=== PATIENT | male | born 1975 | race Caucasian/White ===

== ENCOUNTER → 2022-05-25 | Outpatient (CLI) | payer BC, SELFPAY ==
--- NOTE | 2022-05-25 14:34 | NEURO ---
NCS and/or EMG Patient Report Ordering Doctor: Denys Myers DATE OF SERVICE: 05/25/22 Ervin presents for electrodiagnostic testing of the upper limbs. He reports numbness and pain in both hands, worse over the past 6 months. Electrodiagnostic findings: Median motor nerve demonstrates normal distal latency, amplitude and conduction velocity bilaterally. Normal ulnar motor response bilaterally, including conduction across the elbow. Normal median and ulnar F waves. Sensory responses are within normal limits. On needle EMG, all muscles tested in the upper limbs showed no evidence of denervation with normal motor unit action potentials. Electrodiagnostic Impression: This is a normal electrodiagnostic study of the upper limbs. There is no electrodiagnostic evidence for peripheral neuropathy, including carpal tunnel or cubital tunnel syndrome. No electrodiagnostic evidence is noted for cervical radiculopathy.
== END | disposition home or self-care (01) ==
LOC: PSN 12:55
PROVIDERS: PCP Family Medicine; Visit Provider Orthopaedic Surgery
DX: R22.31 Localized swelling, mass and lump, right upper limb (principal); G56.01 Carpal tunnel syndrome, right upper limb
CPT/HCPCS: 95886; 95913

== ENCOUNTER 2024-01-02 11:15 | Emergency (ER) | payer BC, SELFPAY ==
[2024-01-02 11:16] VITALS: BP 137/93; PULSE 71; RESP 14; TEMP 35.6; O2SAT 98; BMI 26.9
[2024-01-02] MEDS: Fluorescein 1 MG STRIP 1 STRIP LEFT EYE (11:41)
[2024-01-02] MEDS: Tetracaine 0.5% Ophthalmic Bottle 3 DRP LEFT EYE (11:42)
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
[2024-01-02] MEDS: Neomycin/Bacitracin/Polymyxin Opth. Ointment 1 APPLIC LEFT EYE (13:16)
== END 2024-01-02 13:18 | disposition home or self-care (01) ==
PROVIDERS: Emergency Provider Emergency Medicine; PCP Family Medicine; Visit Provider Emergency Medicine
DX: T15.02XA Foreign body in cornea, left eye, initial encounter (principal); Z87.891 Personal history of nicotine dependence; Z97.3 Presence of spectacles and contact lenses; X58.XXXA Exposure to other specified factors, initial encounter
CPT/HCPCS: 99284; J7030

== ENCOUNTER → 2024-11-29 | Outpatient (CLI) | payer BC, SELFPAY ==
--- OUTSIDE RECORDS SUMMARY | 2024-11-29 07:45 | XMS RPT_ITS | CCD ---
Author Organization [facility] Inform ion Partnership [facility] Care Team Providers Care Core Winder Name Role Phone PHYSICIAN, NONE Primary Care Physician Unavailab Citlalli Daley MD Primary Care Provider Citlalli Chaney MD Primary Care Provider DENYS DAVISON Admitting Unavailable DENYS DAVISON Attending Unavailable CITLALLI CHANEY Primary Care Unavailable Citlalli Chaney MD Primary Care Provider CATHY CASTRO MD Attending Unavailable PHYSICIAN, NONE Primary Care Unavailable CATHY CASTRO MD Attending Unavailable PHYSICIAN, NONE Primary Care Unavailable Citlalli Chaney Primary Care Unavailable Denys Davis Attending Unavailable Brian SUPPLY AIDE.Glory EARLY Unavailable Zaid SUPPLY AIDEDiaz WAHL Unavailable CITLALLI CHANEY Primary Care Unavailable CITLALLI CHANEY Referring Unavailable CHEYANNE KLEIN Attending Unavailable CITLALLI CHANEY Primary Care Unavailable CITLALLI CHANEY Attending Unavailable CITLALLI CHANEY Primary Care Unavailable CITLALLI CHNAEY Primary Care Unavailable GLORY TORRES Attending Unavailable CHEYANNE KLEIN Attending Unavailable CITLALLI CHANEY Primary Care Unavailable CITLALLI CHANEY Primary Care Unavailable SELF Referring Unavailable CHEYANNE KLEIN Attending Unavailable Medications Current Medications Medication Drug Class(es) Dates Sig (Normalized) Sig (Original) acetaminophen 325 mg / HYDROcodone bitartrate 5 mg oral tablet (2 sources) Opioid Agonist Start: 01-04-2024 End: 01-07-2024 take 1 tablet by mouth every six hours as needed for pain Mcfarland 325- 5 mg oral tablet Dose = 1 tab(s), Oral, q6h, PRN As needed for severe pain, X 3 day(s), # 12 tab(s), 0 Refill(s), Herpes zoster, 81.8 Start Date: 01/04/24 Stop Date: 01/07/24 Status: Ordered acetaminophen 325 mg / oxyCODONE hydrochloride 5 mg oral tablet (1 source) Opioid Agonist Start: 03-22-2013 take 1 tablet by mouth every four hours as needed Oxycodone-Acetami nophen Active 1 - 2 TABLET PO EVERY 4 HOURS NEEDED March 22, 2013 12:00am amoxicillin 875 mg / clavulanate 125 mg oral tablet (2 sources) Penicillin-class Antibacterial Start: 08-17-2022 End: 08-27-2022 take 1 tablet by mouth twice daily amoxicillin-clavu lanic acid (AUGMENTIN) 875-125 mg per tablet Indications: Non-recurrent acute suppurative otitis media of right ear without spontaneous rupture of tympanic membrane Take 1 tablet by mouth twice daily for 10 days. 20 tablet 0 08/17/2022 08/27/2022 Active Start: 03-11-2022 End: 03-21-2022 take 1 tablet by mouth twice daily amoxicillin-clavulanic acid (AUGMENTIN) 875-125 mg per tablet Indications: Acute otitis media, unspecified otitis media type Take 1 tablet by mouth twice daily for 10 days. 20 tablet 0 03/11/2022 03/21/2022 Active Comment on above: Take 1 tablet by [facility] twice daily for 10 days. benoxinate hydrochloride 4 mg/ml / fluorescein sodium 3 mg/ml ophthalmic solution (4 sources) Diagnostic Dye Start: 03-07-2024 End: 03-07-2024 fluorescein-benoxi maricarmen 0.3-0.4 % 1 Drop (FLURESS) Start: 03-07-2024 End: 03-07-2024 1 Drop, BOTH EYES, DIRECT ED, Starting on Gissell 03/07/24 at 0830, Until Gissell 03/07/24 at 2028, Administer for applanation tonometry. In the event of a Fluress shortage, administer Renetta-Fluor 1 drop into both eyes as directed for applanation tonometry, OPHT CLINIC MED ORDERS Start: 01-12-2024 End: 01-12-2024 fluorescein-benoxinate 0.3-0 .4 % 1 Drop (FLURESS) Start: 01-12-2024 End: 01-12-2024 1 Drop, BOTH EYES, DIRECT ED, Starting on Mon01/12/24 at 0900, Until Mon01/12/24 at 2058, Administer for applanation tonometry. In the event of a Fluress shortage, administer Renetta-Fluor 1 drop into both eyes as directed for applanation tonometry, OPHT CLINIC MED ORDERS 24 hr buPROPion hydrochloride 150 mg extended release oral tablet (20 sources) Aminoketone Start: 04-26-2024 take 1 tablet by mouth once daily buPROPion XL (WELLBUTRIN XL) 150 mg 24 hr tablet Indications: Adjustment disorder with anxious mood Take 1 tablet by mouth once daily. 30 tablet 11 04/26/2024 Active Start: 01-03-2024 Wellbutrin SR Oral, BID, 0 Refill(s) Start Date: 01/03/24 Status: Ordered Start: 06-22-2021 End: 04-26-2024 take 1 tablet by mouth once daily buPROPion XL (WELLBUTRIN XL) 150 mg 24 hr tablet Indications: Adjustment disorder with anxious mood Take 1 tablet by mouth once daily. 30 tablet 11 06/12/2023 04/26/2024 Discontinued Comment on above: Take 1 tablet by [facility] once daily. celecoxib 200 mg oral capsule (20 sources) Nonsteroidal Anti-inflammatory Drug Start: 01-03-2024 CeleBREX Oral, 0 Refill(s) Start Date: 01/03/24 Status: Ordered Start: 07-18-2014 End: 04-26-2025 take 1 capsule by mouth once daily celecoxib (CELEBREX) 200 mg capsule Indications: Chronic pain of right knee Take 1 capsule by mouth once daily. 30 capsule 11 04/26/2024 04/26/2025 Active Comment on above: Take [address] [facility] once daily. gabapentin 600 mg oral tablet (15 sources) Anti-epileptic Agent Start: 04-26-2024 End: 10-23-2024 take 1 tablet by mouth three times daily gabapentin (NEURONTIN) 600 mg tablet Indications: Herpes zoster with complication Take 1 tablet by mouth three times a day for 180 days. 90 tablet 5 04/26/2024 10/23/2024 Active Start: 01-19-2024 End: 05-25-2024 take 1 capsule by mouth three times daily gabapentin (NEURONTIN) 400 mg capsule Indications: Herpes zoster with complication Take 1 capsule by mouth three times a day for 30 days. 90 capsule 04/25/2024 04/26/2024 Discontinued Start: 01-09-2024 End: 01-23-2024 take 1 capsule by mouth three times daily gabapentin (NEURONTIN) 300 mg capsule Take 1 capsule by mouth three times a day for 14 days. 42 capsule 01/09/2024 01/19/2024 Discontinued naproxen 250 mg oral tablet (1 source) Nonsteroidal Anti-inflammatory Drug Start: 05-13-2021 End: 2021 naproxen 250 mg oral tablet Dose : 250 mg = 1 tab(s), Oral, BID, X 7 day(s), # 14 tab(s), 0 Refill(s), 05/20/21 0:47:00 EST, Fall from ladder Contusion of rib Start Date: 05/13/21 Stop Date: 05/20/21 Status: Ordered ondansetron 4 mg oral tablet (1 source) Serotonin-3 Receptor Antagonist Start: 01-05-2024 End: 01-08-2024 take 1 tablet by mouth every six hours as needed for nausea Zofran ODT use ondansetron oral tablet, disintegrating Dose : 4 mg =, Oral, q6h, PRN as needed for nausea/vomiting, # 12 tab(s), 0 Refill(s) Start Date: 01/05/24 Stop Date: 01/08/24 Status: Ordered phenylephrine hydrochloride 25 mg/ml ophthalmic solution (4 sources) alpha-1 Adrenergic Agonist Start: 01-19-2024 End: 01-19-2024 PHENYLephrine 2.5 % 1 Drop (AK-DILATE, JUDY-SYNEPHRINE) Start: 01-19-2024 End: 01-19-2024 1 Drop, BOTH EYES, DIRECT ED, Starting on Mon01/19/24 at 0900, Until Mon01/19/24 at 2059, Administer for dilation PROTECT FROM LIGHT Start: 01-12-2024 End: 01-12-2024 PHENYLephrine 2.5 % 1 Drop ( AK-DILATE, JUDY-SYNEPHRINE) Start: 01-12-2024 End: 01-12-2024 1 Drop, BOTH EYES, DIRECT ED, Starting on Mon01/12/24 at 0900, Until Mon01/12/24 at 2058, Administer for dilation PROTECT FROM LIGHT, OPHT CLINIC MED ORDERS proparacaine hydrochloride 5 mg/ml ophthalmic solution (4 sources) Local Anesthetic Start: 03-07-2024 End: 03-07-2024 proparacaine 0.5 % 1 Drop (ALCAINE) Start: 03-07-2024 End: 03-07-2024 1 Drop, BOTH EYES, DIRECT ED, Starting on Gissell 03/07/24 at 0830, Until Gissell 03/07/24 at 2028, Administer for pneumo tonometry, tonopen tonometry, or pachymetry. In the event of a proparacaine shortage, administer tetracaine 0.5% ophthalmic drops 1 drop in both eyes as directed for pneumo tonometry, tonopen tonometry, or pachymetry, OPHT CLINIC MED ORDERS Start: 01-12-2024 End: 01-12-2024 proparacaine 0.5 % 1 Drop (A LCAINE) Start: 01-12-2024 End: 01-12-2024 1 Drop, BOTH EYES, DIRECT ED, Starting on Mon01/12/24 at 0900, Until Mon01/12/24 at 2058, Administer for pneumo tonometry, tonopen tonometry, or pachymetry. In the event of a proparacaine shortage, administer tetracaine 0.5% ophthalmic drops 1 drop in both eyes as directed for pneumo tonometry, tonopen tonometry, or pachymetry, OPHT CLINIC MED ORDERS rosuvastatin calcium 10 mg oral tablet (20 sources) HMG-CoA Reductase Inhibitor Start: 04-26-2024 take 1 tablet by mouth once daily at bedtime rosuvastatin (CRESTOR) 10 mg tablet Indications: Hyperlipidemia, unspecified hyperlipidemia type Take 1 tablet by mouth daily at bedtime. 30 tablet 11 04/26/2024 Active Start: 01-03-2024 Crestor Oral, qDay, 0 Refill(s) Start Date: 01/03/24 Status: Ordered Start: 06-22-2021 End: 04-26-2024 take 1 tablet by mouth once daily at bedtime rosuvastatin (CRESTOR) 10 mg tablet Indications: Hyperlipidemia, unspecified hyperlipidemia type Take 1 tablet by mouth daily at bedtime. 30 tablet 11 06/12/2023 04/26/2024 Discontinued Comment on above: Take 1 tablet by fredy daily at bedtime. sertraline 100 mg oral tablet (20 sources) Serotonin Reuptake Inhibitor Start: 04-26-2024 take 2 tablets by mouth once daily sertraline (ZOLOFT) 100 mg tablet Indications: Adjustment disorder with anxious mood Take 2 tablets by mouth once daily. 60 tablet 11 04/26/2024 Active Start: 01-03-2024 Zoloft Oral, q Day, 0 Refill(s) Start Date: 01/03/24 Status: Ordered Start: 06-22-2021 End: 04-26-2024 take 2 tablets by mouth once daily sertraline (ZOLOFT) 100 mg tablet Indications: Adjustment disorder with anxious mood Take 2 tablets by mouth once daily. 60 tablet 11 06/12/2023 04/26/2024 Discontinued Start: 07-18-2014 take 100 mg by mouth once chrissy y Sertraline Active 100 MG PO DAILY July 17, 2014 11:00pm Comment on above: Take [address] [facility] once daily. traMADol hydrochloride 50 mg oral tablet (1 source) Opioid Agonist Start: 07-19-19 take 100 mg by mouth every four hours Tramadol Active 100 MG PO Q4H July 17, 2014 11:00pm tropicamide 10 mg/ml ophthalmic solution (4 sources) Anticholinergic Start: 01-19-20 End: 01-19-20 tropicamide 1 % 1 Drop (MYDRIACYL) Start: 01-19-2024 End: 01-19-2024 1 Drop, BOTH EYES, DIRECT ED, Starting on Mon01/19/24 at 0900, Until Mon01/19/24 at 2058, Administer for dilation Start: 01-12-2024 End: 01-12-2024 tropicamide 1 % 1 Drop (MYDR IACYL) Start: 01-12-2024 End: 01-12-2024 1 Drop, BOTH EYES, DIRECT ED, Starting on Mon01/12/24 at 0900, Until Mon01/12/24 at 2058, Administer for dilation, OPHT CLINIC MED ORDERS Tylenol with Codeine #3 use acetaminophen-codeine 300 mg-30 mg tablet (1 source) Start: 05-13-2021 End: 05-16-2021 take 1 tablet by mouth every six hours Tylenol with Codeine #3 use acetaminophen-codeine 300 mg-30 mg tablet Dose = 1 tab(s), Oral, q6hr, X 3 day(s), # 12 tab(s), 0 Refill(s), Fall from ladder Contusion of rib Start Date: 05/13/21 Stop Date: 05/16/21 Status: Ordered valACYclovir 1000 mg oral tablet (8 sources) Herpesvirus Nucleoside Analog DNA Polymerase Inhibitor, Herpes Simplex Virus Nucleoside Analog DNA Polymerase Inhibitor, Herpes Zoster Virus Nucleoside Analog DNA Polymerase Inhibitor Start: 02-07-2024 End: 02-21-2024 take 1 tablet by mouth twice daily valACYclovir (VALTREX) 1 gram tablet Take 1 tablet by mouth two times a day for 14 days. 28 tablet 02/07/2024 02/21/2024 Active Start: 01-12-2024 End: 02-07-2024 take 1 tablet by mouth three times daily valACYclovir (VALTREX) 1 gram tablet Take 1 tablet by mouth three times a day. 21 tablet 2 02/07/2024 02/07/2024 Discontinued Start: 01-04-2024 End: 01-11-2024 valACYclovir 1 g oral tablet Dose : 1 gram(s) = 1 tab(s), Oral, q8h, X 7 day(s), # 21 tab(s), 0 Refill(s), 01/11/24 12:06:00 AM EDT, 81.8 Start Date: 01/04/24 Stop Date: 01/11/24 Status: Ordered Completed/Discontinued Medications Medication Drug Class(es) Dates Sig (Normalized) Sig (Original) betamethasone 3 mg/ml / betamethasone acetate 3 mg/ml injectable suspension (1 source) Corticosteroid Start: 04-04-2022 End: 04-04-2022 betamethasone acetate-betamethason e sodium phosphate 3 mg injection (CELESTONE) Start: 04-04-2022 End: 04-04-2022 betamethasone acetate-betame thasone sodium phosphate 3 mg injection (CELESTONE) cyclobenzaprine hydrochloride 10 mg oral tablet (1 source) Muscle Relaxant Start: 05-19-2021 End: 03-11-2022 take 1 tablet by mouth three times daily as needed for muscle spasms cyclobenzaprine (FLEXERIL) 10 mg tablet Indications: Contusion of rib on left side, subsequent encounter Take 1 tablet by mouth three times daily as needed for muscle spasm. 30 tablet 1 05/19/2021 03/11/2022 Discontinued (Course of therapy completed) Comment on above: Take 1 tablet by fredy three times daily as needed for muscle spasm. erythromycin 0.005 mg/mg ophthalmic ointment (5 sources) Macrolide, Macrolide Antimicrobial Start: 01-12-2024 End: 03-07-2024 erythromycin (ROMYCIN) 5 mg/gram (0.5 %) ophthalmic ointment Use 1 application in the left eye daily at bedtime. 3.5 g 2 01/12/2024 03/07/2024 Discontinued (Discontinued by another Health Care Provider) 10 ml lidocaine hydrochloride 10 mg/ml injection (1 source) Antiarrhythmic, Amide Local Anesthetic Start: 04-04-2022 End: 04-04-2022 lidocaine (PF) 10 mg/mL (1 %) 0.5 mL injection (XYLOCAINE) Start: 04-04-2022 End: 04-04-2022 lidocaine (PF) 10 mg/mL (1 % ) 0.5 mL injection (XYLOCAINE) prednisoLONE acetate 10 mg/ml ophthalmic suspension (6 sources) Corticosteroid Start: 02-07-2024 End: 03-07-2024 prednisoLONE acetate (PRED FORTE) 1 % ophthalmic suspension Use 1 Drop in the left eye two times a day. Follow taper dose as instructed. 10 mL 1 02/07/2024 03/07/2024 Discontinued (Discontinued by another Health Care Provider) Start: 01-12-2024 End: 02-07-2024 prednisoLONE acetate (PRED F ORTE) 1 % ophthalmic suspension Use 1 Drop in the left eye four times daily. 10 mL 1 01/12/2024 02/07/2024 Discontinued Problems Active Problems Problem Classification Problem Date Documented Date Episodic/Chronic Adjustment disorders (20 sources) Adjustment disorder with anxious mood; Translations: [Adjustment disorder with anxiety] Onset: 03-02-2009 03-02-2009 Chronic Diseases of white blood cells (1 source) White blood cell disorder; Translations: [Other specified disorders of white blood cells] Onset: 05-13-2021 Chronic Disorders of lipid metabolism (20 sources) Hyperlipidemia; Translations: [Hyperlipidemia, unspecified] Onset: 01-09-2014 02-19-2015 Chronic E Codes: Fall (1 source) Fall from ladder; Translations: [Fall on and from ladder, initial encounter] Onset: 05-13-2021 Episodic Joint disorders and dislocations; trauma-related (20 sources) Derangement of meniscus; Translations: [Other meniscus derangements, unspecified lateral meniscus, unspecified knee] Onset: 01-09-2008 05-03-2021 Chronic Other and unspecified benign neoplasm (3 sources) Lipoma of right upper limb; Translations: [Benign lipomatous neoplasm of skin and subcutaneous tissue of right arm] Episodic Other and unspecified benign neoplasm (1 source) Benign lipomatous neoplasm of skin and subcutaneous tissue of right arm; Translations: [Lipoma of right upper extremity] Onset: 11-04-2022 Episodic Other eye disorders (1 source) Pain of left eye; Translations: [Ocular pain, left eye] 01-02-2024 Episodic Other eye disorders (1 source) Unspecified disorder of eye and adnexa; Translations: [Unspecified disorder of eye and adnexa] Onset: 01-25-2024 Episodic Other nervous system disorders (5 sources) Carpal tunnel syndrome of right wrist; Translations: [Carpal tunnel syndrome, right upper limb] Chronic Other nervous system disorders (1 source) Carpal tunnel syndrome, right upper limb; Translations: [Carpal tunnel syndrome on right] Onset: 11-04-2022 Chronic Other nervous system disorders (1 source) Other chronic pain; Translations: [Chronic pain of right knee] Onset: 07-27-2012 Chronic Other nervous system disorders (1 source) Impairment of balance; Translations: [Other abnormalities of gait and mobility] Episodic Other non-traumatic joint disorders (20 sources) Pain in unspecified knee; Translations: [Pain in joint, lower leg] Onset: 07-27-2012 07-27-2012 Episodic Other non-traumatic joint disorders (1 source) Mass of joint of right wrist; Translations: [Other specified joint disorders, right wrist] Episodic Other non-traumatic joint disorders (2 sources) Effusion of joint of right wrist; Translations: [Effusion, right wrist] Episodic Other non-traumatic joint disorders (1 source) Effusion, right wrist; Translations: [Effusion of joint of right wrist] Onset: 11-04-2022 Episodic Other skin disorders (3 sources) Mass of wrist; Translations: [Localized swelling, mass and lump, right upper limb] Episodic Otitis media and related conditions (2 sources) Acute otitis media; Translations: [Otitis media, unspecified, unspecified ear] Episodic Screening and history of mental health and substance abuse codes (4 sources) Patient encounter status; Translations: [Encounter for screening for depression] Onset: 04-26-2024 04-26-2024 Episodic Substance-related disorders (20 sources) Cannabis abuse; Translations: [Cannabis abuse, uncomplicated] Onset: 01-31-2018 01-31-2018 Chronic Superficial injury; contusion (1 source) Contusion of chest; Translations: [Contusion of thorax, unspecified, initial encounter] Onset: 05-13-2021 Episodic Past or Other Problems Problem Classification Problem Date Documented Da te Episodic/Chronic Joint disorders and dislocations; trauma-related (20 sources) Tear of meniscus of knee; Translations: [Unspecified tear of unspecified meniscus, current injury, right knee, initial encounter] Onset: 06-13-2011 06-13-2011 Episodic Other acquired deformities (20 sources) Acquired genu varum; Translations: [Varus deformity, not elsewhere classified, unspecified knee] Onset: 03-29-2013 03-29-2013 Episodic Other nervous system disorders (20 sources) Paresthesia of upper limb; Translations: [Anesthesia of skin] Onset: 09-01-2011 09-01-2011 Episodic Other non-traumatic joint disorders (9 sources) Shoulder pain; Translations: [Pain in right shoulder] Onset: 09-01-2011 09-01-2011 Episodic Other non-traumatic joint disorders (16 sources) Pain in right shoulder; Translations: [Pain in joint, shoulder region] Onset: 09-01-2011 09-01-2011 Episodic Other non-traumatic joint disorders (1 source) Pain in right knee; Translations: [Chronic pain of right knee] Onset: 07-27-2012 Episodic Residual codes; unclassified (20 sources) Family history of cancer of colon; Translations: [Family history of malignant neoplasm of digestive organs] Onset: 06-03-2009 06-03-2009 Episodic Spondylosis; intervertebral disc disorders; other back problems (20 sources) Lumbago with sciatica; Translations: [Lumbago with sciatica, unspecified side] Onset: 04-21-2015 04-21-2015 Episodic Viral infection (10 sources) Herpes zoster without complication; Translations: [Zoster without complications] Onset: 01-04-2024 Episodic Results Test Name Value Interpretation Reference Range Facil ity CNOVon 04-26-2024 CNOV Office Visit ([facility] ) NEVILLE FOX ([id number]) 1975 M Date Time Provider Department 04/26/24 7:40 AM GLORY TORRES [facility] During your visit today, we recorded the following information about you: Pulse Respiration Blood pressure Weight 63/minute 16/minute 120/82 93.6 kg Glory Torres APRN.MEDICAID ANALYST 04/26/2024 8:21 AM Signed This is a 48 year old male who presents today with: Patient presents with: Physical HISTORY OF PRESENT ILLNESS: Neville Fox is a 48 year old male. Patient presents with: Physical Diet: Eating a well balanced diet. Exercise: Staying active. Vision: Had exam, wearing glasses.Dental: Had exam. Sleep: 6-8 hours per night. Mood:See below Shingles: Diagnosed with shingles by ER, evaluated by cut in station operator 03/07/2024. Taking gabapentin 400 mg 3 times daily. Refers that rash has heal but still having ongoing pain. Gabapentin has been mildly helpful. No difficulty with vision. Upset how situation was handled within [facility]. Would like to look at establishing care with another provider at a different hospital system in the future. Anxiety: Taking Wellbutrin XL 150 mg and Zoloft 100 mg, 2 tablets daily. Symptoms well-controlled. Denies SI/HI. Chronic Knee Pain: Taking Celebrex 200 mg daily. Was following with Dr. Davison in Orthopedics. Discussion of knee replacement in the future. Lipids: Taking Crestor 10 mg daily. Colonoscopy: Last completed 2021, due in 10 years. Vaccines: Denied wanting any vaccines at this time. PAST MEDICAL HISTORY: PAST MEDICAL HISTORY Diagnosis Date Arthritis Herpes zoster left Eye Internal derangement of knee Shingles Unspecified otitis media Recurrent otitis PAST SURGICAL HISTORY Procedure Laterality Date ARTHROSCOPY KNEE DIAGNOSTIC W/WO SYNOVIAL BX SPX between high school and summer 2008 most recent Arthroscopy, knee, x5 right knee, COLONOSCOPY 07/14/2021 repeat in 10 years ALLERGIES Patient has no known allergies. MEDICATIONS Current Outpatient Medications Medication Sig gabapentin (NEURONTIN) 400 mg capsule Take 1 capsule by mouth three times a day for 30 days. buPROPion XL (WELLBUTRIN XL) 150 mg 24 hr tablet Take 1 tablet by mouth once daily. celecoxib (CELEBREX) 200 mg capsule Take 1 capsule by mouth once daily. rosuvastatin (CRESTOR) 10 mg tablet Take 1 tablet by mouth daily at bedtime. sertraline (ZOLOFT) 100 mg tablet Take 2 tablets by mouth once daily. No current facility-administered medications for this visit. FAMILY HISTORY Problem Relation Age of Onset No Ocular Disease Father No Ocular Disease Mother Colon Cancer Mother age 61 Hyperlipidemia Mother Heart Sister Hypertension Paternal Grandmother Diabetes Paternal Grandmother Social History Tobacco Use Smoking status: Every Day Current packs/day: 0.50 Average packs/day: 0.5 packs/day for 15.0 years (7.5 ttl pk-yrs) Types: Cigarettes Smokeless tobacco: Never Tobacco comments: Currently not smoking - 7 days no smoking 01/09/24 Vaping Use Vaping status: Never Used Substance Use Topics Alcohol use: Yes Comment: very seldom Drug use: Yes Frequency: 7.0 times per week Types: Marijuana Comment: + marijuana tox. Daily REVIEW OF SYSTEMS GENERAL: No weight loss, malaise or fevers/chills HEENT: Negative for frequent or significant headaches, No changes in hearing or vision. NECK: Negative for lumps, goiter, pain and significant neck swelling RESPIRATORY: Negative for cough, hemoptysis, wheezing, dyspnea or shortness of breath CARDIOVASCULAR: Negative for chest pain, leg swelling, orthopnea, or palpitations GI: No nausea, vomiting, or diarrhea/constipation. No hematochezia/melena. No heartburn or reflux symptoms. : No history of dysuria, frequency or incontinence MUSCULOSKELETAL: Negative for joint pain or swelling. SKIN: Negative for lesions, rash, and itching ENDOCRINE: Negative for cold or heat intolerance, polyuria, polydipsia and goiter NEURO: No history of headaches, syncope, paralysis, seizures or tremors MOOD: Negative for depression, anxiety, or suicidal ideation. EXAM: BP 120/82 Pulse 63 Resp 16 Wt 93.6 kg (206 lb 5.6 oz) SpO2 97% BMI 29.61 kg/m? PHYSICAL EXAM: General Appearance: Well appearing, alert, in no acute distress, well-hydrated, well nourished. Skin: Skin color, texture, turgor normal, no suspicious rashes or lesions. Head: Normocephalic, no masses, lesions, tenderness or abnormalities. Eyes: Anicteric sclera. Pupils are equally round and reactive to light. Extraocular movements are intact. Ears: External ears normal, canals clear. TMs pearly avila. Lungs: Lungs clear to auscultation. No wheezing, rhonchi, rales. Heart: RRR without murmur, gallop, or rubs. No ectopy. Abdomen: Normal abdominal exam, Abdomen soft, non-tender. Bowel sounds normal. No masses, organomegaly. Ext (more content not included)... Normal [facility] CNOVon 01-09-2024 CNOV Office Visit ([facility] ) NEVILLE FOX ([id number]) 1975 M Date Time Provider Department 01/09/24 4:40 PM CITLALLI CHANEY [facility] During your visit today, we recorded the following information about you: Pulse Respiration Blood pressure Weight 76/minute 16/minute 132/84 80.4 kg Citlalli Chaney MD 01/09/2024 5:01 PM Signed Chief Complaint Patient presents with: Hospital Follow Up HPI Neville Fox is a 48 year old male who presents here today for an ED follow up. Pt here today for an [place] [facility] follow up and [facility] ED f/u. Pt reports symptoms started 1 week ago when he thought something was in his eye. Tried coming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 [D17.21] Carpal tunnel syndrome on right [G56.01] Effusion of joint of right wrist [M25.431] Performed By: #### S #### [facility] CLIA [id number] [address] [place] [address] OF [place] FINAL DIAGNOSIS Normal [facility] Comment on above: Order Comment: Speci men Type: TISSUE SPECIMEN Ordering Facility: [facility] Address: [address] [place] [address] Result Comment: A. S oft tissue mass, right wrist, excision: - Spindle cell lipoma. Performed By: #### S #### [facility] CLIA [id number] [address] [place] [address] OF [facility] FINAL PERFORMING LAB Normal [facility] Comment on above: Order Comment: Speci men Type: TISSUE SPECIMEN Ordering Facility: [facility] Address: [address] [place] [address] Result Comment: Diag nostic interpretation performed at [facility], [address] [place] [address] CLIA# [id number] Mail Weigher: Benjamín Siddiqui M.D. Performed By: #### S #### [facility] CLIA [id number] [address] [place] [address] OF [place] GROSS DESCRIPTION A. LIPOMA Normal [facility] Comment on above: Order Comment: Speci men Type: TISSUE SPECIMEN Ordering Facility: [facility] Address: [address] [facility], [place] [address] Result Comment: Rece ived in formalin labeled "right wrist lipoma" is an unoriented roughly ovoid shaped piece of trent-yellow lobulated adipose tissue that measures 2.0 x 1.9 x 0.6 cm. The specimen is sectioned to reveal trent-yellow lobulated and homogenous cut surfaces with no areas of hemorrhage, necrosis, induration, or nodularity. The specimen is entirely submitted in formalin in cassette A1. JGW November 04, 2022 3:15 PM Gross examination performed at [facility], [address] [place] [address] Performed By: #### S #### [facility] CLIA [id number] [address] [place] [address] [place] [address] [place] No Panel Informationon 07-12 [facility] Additional Injections: R car pal tunnel [facility] Vital Signs Date Time Vital Sign Value Performing Clinician Facility 04-26-2024 07:43-0500 Body mass index (BMI) [Ratio] 29.61 kg/m2 Glory Torres APRN.CNP Work Phone: [facility] 04-26-2024 07:43-0500 Body weight 93.6 kg Glory Torres APRN.MEDICAID ANALYST Work Phone: [facility] 04-26-2024 07:43-0500 Diastolic blood pressure 82 mm[Hg] Glory Torres APRN.MEDICAID ANALYST Work Phone: [facility] 04-26-2024 07:43-0500 Heart rate 63 /min Glory Torres APRN.MEDICAID ANALYST Work Phone: [facility] 04-26-2024 07:43-0500 Respiratory rate 16 /min Glory Torres APRN.MEDICAID ANALYST Work Phone: [facility] 04-26-2024 07:43-0500 SaO2% (BldA) [Mass fraction] 97 % Glory Torres APRN.MEDICAID ANALYST Work Phone: [facility] 04-26-2024 07:43-0500 Systolic blood pressure 120 mm[Hg] Glory Torres APRN.CNP Work Phone: [facility] 01-09-2024 16:36-0400 Body mass index (BMI) [Ratio] 25.43 kg/m2 iCtlalli Chaney MD Work Phone: [facility] 01-09-2024 16:36-0400 Body weight 80.4 kg Citlalli Chaney MD Work Phone: [facility] 01-09-2024 16:36-0400 Diastolic blood pressure 84 mm[Hg] Citlalli Chaney MD Work Phone: [facility] 01-09-2024 16:36-0400 Heart rate 76 /min Citlalli Chaney MD Work Phone: [facility] 01-09-2024 16:36-0400 Respiratory rate 16 /min Citlalli Chaney MD Work Phone: [facility] 01-09-2024 16:36-0400 Systolic blood pressure 132 mm[Hg] Citlalli Chaney MD Work Phone: [facility] 01-05-2024 13:51-0400 Blood Pressure Location CATHY CASTRO MD [facility] 01-05-2024 13:51-0400 Blood Pressure Method CATHY CASTRO MD [facility] 01-05-2024 13:51-0400 Body temperature 97.7 [degF] CATHY CASTRO MD [facility] 01-05-2024 13:51-0400 Body weight 86.4 kg CATHY CASTRO MD [facility] 01-05-2024 13:51-0400 Diastolic Blood Pressure Non-Invasive 93 mm[Hg] CATHY CASTRO MD [facility] 01-05-2024 13:51-0400 Heart rate 86 /min CATHY CASTRO MD [facility] 01-05-2024 13:51-0400 Respiratory rate 16 /min CATHY CASTRO MD [facility] 01-05-2024 13:51-0400 Systolic Blood Pressure Non-Invasive 156 mm[Hg] CATHY CASTRO MD [facility] 01-04-2024 00:38-0400 Diastolic Blood Pressure Non-Invasive 90 mm[Hg] CATHY CASTRO MD [facility] 01-04-2024 00:38-0400 Heart rate 80 /min CATHY CASTRO MD [facility] 01-04-2024 00:38-0400 Respiratory rate 18 /min CATHY CASTRO MD [facility] 01-04-2024 00:38-0400 Systolic Blood Pressure Non-Invasive 149 mm[Hg] CATHY CASTRO MD [facility] 01-03-2024 23:59-0400 Blood Pressure Cuff Size CATHY CASTRO MD [facility] 01-03-2024 23:59-0400 Blood Pressure Location CATHY CASTRO MD [facility] 01-03-2024 23:59-0400 Blood Pressure Method CATHY CASTRO MD [facility] 01-03-2024 23:59-0400 Body height 175.3 cm CATHY CASTRO MD [facility] 01-03-2024 23:59-0400 Body temperature 97.52 [degF] CATHY CASTRO MD [facility] 01-03-2024 23:59-0400 Body weight 81.8 kg CATHY CSATRO MD [facility] 01-03-2024 23:59-0400 Diastolic Blood Pressure Non-Invasive 96 mm[Hg] CATHY CASTRO MD [facility] 01-03-2024 23:59-0400 Heart rate 81 /min CATHY CASTRO MD [facility] 01-03-2024 23:59-0400 Respiratory rate 20 /min CATHY CASTRO MD [facility] 01-03-2024 23:59-0400 Systolic Blood Pressure Non-Invasive 150 mm[Hg] CATHY CASTRO MD [facility] 01-02-2024 10:45-0400 Body mass index (BMI) [Ratio] 26.1 kg/m2 Sai Baugh APRN.MEDICAID ANALYST Work Phone: [facility] 01-02-2024 10:45-0400 Body temperature 97.9 [degF] Sai Baugh APRN.MEDICAID ANALYST Work Phone: [facility] 01-02-2024 10:45-0400 Body weight 82.5 kg Sai Baugh APRN.MEDICAID ANALYST Work Phone: [facility] 01-02-2024 10:45-0400 Diastolic blood pressure 88 mm[Hg] Sai Baugh APRN.MEDICAID ANALYST Work Phone: [facility] 01-02-2024 10:45-0400 Heart rate 76 /min Sai Baugh APRN.MEDICAID ANALYST Work Phone: [facility] 01-02-2024 10:45-0400 Respiratory rate 16 /min Sai Baugh APRN.MEDICAID ANALYST Work Phone: [facility] 01-02-2024 10:45-0400 SaO2% (BldA) [Mass fraction] 97 % Sai Baugh APRN.MEDICAID ANALYST Work Phone: [facility] 01-02-2024 10:45-0400 Systolic blood pressure 144 mm[Hg] Sai Baugh APRN.MEDICAID ANALYST Work Phone: [facility] 10-21-2022 15:58-0400 Body height 177.8 cm Pacc 1 Work Phone: [facility] 10-21-2022 15:58-0400 Body temperature 97.7 [degF] Pacc 1 Work Phone: [facility] 10-21-2022 15:58-0400 Body weight 85.28 kg Pacc 1 Work Phone: [facility] 10-21-2022 15:58-0400 Diastolic blood pressure 74 mm[Hg] Pacc 1 Work Phone: [facility] 10-21-2022 15:58-0400 Heart rate 70 /min Pacc 1 Work Phone: [facility] 10-21-2022 15:58-0400 Respiratory rate 16 /min Pacc 1 Work Phone: [facility] 10-21-2022 15:58-0400 SaO2% (BldA) [Mass fraction] 95 % Pacc 1 Work Phone: [facility] 10-21-2022 15:58-0400 Systolic blood pressure 116 mm[Hg] Pacc 1 Work Phone: [facility] 08-17-2022 07:39-0400 Body temperature 98.4 [degF] Glory Torres SUPPLY AIDE.MEDICAID ANALYST Work Phone: [facility] 08-17-2022 07:39-0400 Diastolic blood pressure 78 mm[Hg] Glory Whitthof SUPPLY AIDE.MEDICAID ANALYST Work Phone: [facility] 08-17-2022 07:39-0400 Systolic blood pressure 124 mm[Hg] Glory Whitthof SUPPLY AIDE.MEDICAID ANALYST Work Phone: [facility] 06-13-2022 13:37-0500 Body weight 85.46 kg Citlalli Chaney MD Work Phone: [facility] 06-13-2022 13:37-0500 Diastolic blood pressure 82 mm[Hg] Citlalli Chaney MD Work Phone: [facility] 06-13-2022 13:37-0500 Heart rate 68 /min Citlalli Chaney MD Work Phone: [facility] 06-13-2022 13:37-0500 Respiratory rate 16 /min Citlalli Chaney MD Work Phone: [facility] 06-13-2022 13:37-0500 Systolic blood pressure 136 mm[Hg] Citlalli Chaney MD Work Phone: [facility] 03-11-2022 11:18-0400 Body temperature 98.4 [degF] Glory Whitthof SUPPLY AIDE.MEDICAID ANALYST Work Phone: [facility] 03-11-2022 11:18-0400 Body weight 83.46 kg Glory Whitthof SUPPLY AIDE.MEDICAID ANALYST Work Phone: [facility] 03-11-2022 11:18-0400 Diastolic blood pressure 68 mm[Hg] Glory Whitthof SUPPLY AIDE.MEDICAID ANALYST Work Phone: [facility] 03-11-2022 11:18-0400 Heart rate 75 /min Glory Whitthof SUPPLY AIDE.MEDICAID ANALYST Work Phone: [facility] 03-11-2022 11:18-0400 Respiratory rate 16 /min Glory Whitthof SUPPLY AIDE.MEDICAID ANALYST Work Phone: [facility] 03-11-2022 11:18-0400 SaO2% (BldA) [Mass fraction] 96 % Gloryberhane Whitthof SUPPLY AIDE.MEDICAID ANALYST Work Phone: [facility] 03-11-2022 11:18-0400 Systolic blood pressure 122 mm[Hg] Glory Whitthof SUPPLY AIDE.MEDICAID ANALYST Work Phone: [facility] 05-13-2021 01:16-0500 Diastolic blood pressure 67 mm[Hg] LEE SHETH MD [facility] 05-13-2021 01:16-0500 Heart rate 60 /min LEE SHETH MD [facility] 05-13-2021 01:16-0500 Respiratory rate 18 /min LEE SHETH MD [facility] 05-13-2021 01:16-0500 Systolic blood pressure 127 mm[Hg] LEE SHETH MD [facility] 05-12-2021 23:00-0500 Diastolic blood pressure 87 mm[Hg] LEE SHETH MD [facility] 05-12-2021 23:00-0500 Heart rate 71 /min LEE SHETH MD [facility] 05-12-2021 23:00-0500 Systolic blood pressure 142 mm[Hg] LEE SHETH MD [facility] 05-12-2021 19:14-0500 Body temperature 98.6 [degF] LEE SHETH MD [facility] 05-12-2021 19:14-0500 Diastolic blood pressure 80 mm[Hg] LEE SHETH MD [facility] 05-12-2021 19:14-0500 Heart rate 75 /min LEE SHETH MD [facility] 05-12-2021 19:14-0500 Respiratory rate 18 /min LEE SHETH MD [facility] 05-12-2021 19:14-0500 Systolic blood pressure 136 mm[Hg] LEE SHETH MD [facility] Encounters Encounter Date Encounter Type Care Provider Facility Start: 04-26-2024 End: 04-26-2024 Patient encounter procedure Glory Torres APRN.MEDICAID ANALYST Work Phone: [facility] Comment on above: Wellness examination (Primary Dx); Herpes zoster with complication; Chronic pain of right knee; Adjustment disorder with anxious mood; Hyperlipidemia, unspecified hyperlipidemia type; Screening for depression; Encounter for screening examination for other mental health and behavioral disorders Start: 04-26-2024 End: 04-26-2024 Patient encounter status Glory Brian JANGMEDICAID ANALYST Work Phone: [facility] Work Phone: Start: 04-26-2024 End: 04-26-2024 ambulatory CITLALLI CHANEY Facility:[facility] Start: 04-26-2024 Encounter for genera l adult medical examination without abnormal findings GLORY TORRES [facility] Start: 04-24-2024 End: 04-25-2024 ambulatory Citlalli Chaney MD Work Phone: [facility] Comment on above: Mised it Refill Request Refill Start: 03-07-2024 End: 03-07-2024 Office outpatient visit 15 minutes Cheyanne Klein MD Work Phone: [facility] Comment on above: Herpes zoster with c omplication (Primary Dx) Start: 03-07-2024 End: 03-07-2024 Refill Diaz Mar FÁTIMA Work Phone: [facility] Comment on above: Refill Request Start: 02-07-2024 End: 02-07-2024 Refill Cheyanne Klein MD Work Phone: [facility] Comment on above: Refill Request; Nurs e To Address; Patient Question Start: 01-19-2024 End: 01-19-2024 ambulatory Citlalli Chaney MD Work Phone: [facility] Comment on above: Still having facial pain and burning. Start: 01-19-2024 End: 01-19-2024 Office outpatient visit 25 minutes Cheyanne Klein MD Work Phone: [facility] Comment on above: Herpes zoster with c omplication (Primary Dx) Start: 01-12-2024 End: 01-12-2024 ambulatory CITLALLI Antunez [facility] Facility:[facility] Start: 01-12-2024 End: 01-12-2024 Office outpatient new 45 minutes Cheyanne Klein MD Work Phone: [facility] Comment on above: Herpes zoster with c omplication (Primary Dx) Start: 01-09-2024 End: 01-12-2024 ambulatory CITLALLI Antunez [facility] Facility:[facility] Start: 01-09-2024 End: 01-09-2024 Patient encounter procedure Citlalli Chaney MD Work Phone: [facility] Comment on above: Herpes zoster with c omplication (Primary Dx) Start: 01-05-2024 End: 01-05-2024 Telephone encounter Citlalli Chaney MD Work Phone: [facility] Comment on above: Patient Update Start: 01-05-2024 End: 01-05-2024 Emergency department patient visit CATHY CASTRO MD [facility] Start: 01-03-2024 End: 01-04-2024 Emergency department patient visit CATHY CASTRO MD [facility] Start: 01-02-2024 End: 01-02-2024 Emergency department patient visit Citlalli Fuenteslarayen Facility:[facility] Start: 01-02-2024 End: 01-02-2024 ambulatory CITLALLI Antunez [facility] Facility:[facility] Start: 01-02-2024 End: 01-02-2024 Patient encounter procedure Sai Baugh APRN.MEDICAID ANALYST Work Phone: [facility] Comment on above: Pain of left eye (Pr imary Dx) Start: 06-11-2023 Refill Citlalli myles MD Work Phone: [facility] Comment on above: Refill Request Start: 12-22-2022 End: 12-22-2022 Patient encounter procedure Denys Davison MD Work Phone: Orthopaedics Comment on above: Lipoma of right uppe r extremity (Primary Dx); Carpal tunnel syndrome on right Start: 11-04-2022 End: 11-04-2022 ambulatory DENYS DAVISON Facility:[facility] Start: 10-21-2022 End: 10-21-2022 [place] [id number] Work Phone: Pre Anesthesia Comment on above: Pre-operative examin ation (Primary Dx); Adjustment disorder with anxious mood; Marijuana abuse; Hyperlipidemia, unspecified hyperlipidemia type; Smoker Start: 10-21-2022 End: 10-21-2022 Preprocedural examination done [place] [id number] Work Phone: Pre Anesthesia Start: 08-17-2022 End: 08-17-2022 Patient encounter procedure Glory Torres APRN.MEDICAID ANALYST Work Phone: [facility] Comment on above: Non-recurrent acute suppurative otitis media of right ear without spontaneous rupture of tympanic membrane (Primary Dx) Start: 08-04-2022 Telephone encounter Denys martínez MD Work Phone: Orthopaedics Comment on above: Schedule Surgery Start: 07-14-2022 End: 07-14-2022 Patient encounter procedure Denys Davison MD Work Phone: Orthopaedics Comment on above: Carpal tunnel syndro me of right wrist (Primary Dx); Lipoma of right upper extremity; Effusion of right wrist Start: 07-12-2022 End: 07-12-2022 Subsequent hospital visit by physician [facility] (I-Stat/1.5t) Work Phone: Radiology Comment on above: Wrist lump, right [R 22.31] Start: 06-13-2022 End: 06-13-2022 Patient encounter procedure Denys Davison MD Work Phone: Orthopaedics Comment on above: Wrist lump, right (P rimary Dx); Carpal tunnel syndrome of right wrist Start: 06-10-2022 End: 06-13-2022 Patient encounter procedure Citlalli Chaney MD Work Phone: [facility] Comment on above: Adjustment disorder with anxious mood (Primary Dx); Chronic pain of right knee; Hyperlipidemia, unspecified hyperlipidemia type; Mass of joint of right wrist; Balance problem Start: 06-02-2022 ambulatory Denys Davison MD Work Phone: Orthopaedics Comment on above: Nerve test Start: 05-25-2022 End: 05-25-2022 ambulatory [facility] Work Phone: Start: 05-25-2022 End: 05-25-2022 Patient encounter procedure [facility] Start: 04-04-2022 End: 04-04-2022 Patient encounter procedure Denys Davison MD Work Phone: Orthopaedics Comment on above: Carpal tunnel syndro me of right wrist (Primary Dx); Wrist lump, right Start: 03-11-2022 End: 03-11-2022 Patient encounter procedure Glory Torres APRN.CNP Work Phone: [facility] Comment on above: Acute otitis media, unspecified otitis media type (Primary Dx); Wrist lump, right Start: 05-12-2021 End: 05-13-2021 Emergency department patient visit LEE SHETH MD [facility] Procedures Date Procedure Procedure Detail Performing Clinician Start: 04-26-2024 Adult depression scr eening assessment Glory Torres SUPPLY AIDE.MEDICAID ANALYST Work Phone: Start: 07-12-2022 Mri any jt upper ext remity w/o contrast matrl Denys Davison MD Work Phone: Start: 06-24-2022 Lipid 1996 panel - S jerel or Plasma Mri (I-Stat/1.5t) Work Phone: Start: 04-04-2022 Injection therapeuti c carpal tunnel Denys Davison MD Work Phone: Start: 07-14-2021 Colonoscopy Glory hartof SUPPLY AIDE.MEDICAID ANALYST Work Phone: Plan of Treatment Date Care Activity Detail Author Start: 07-15-2031 Colonoscopy COLONOSCOPY [facility] Start: 07-15-2031 COLORECTAL CANCER SCREENING COLORECTAL CANCER SCREENING [facility] Start: 07-15-2031 Screening for malign ant neoplasm of colon [facility] Start: 06-24-2027 Lipid 1996 panel - Serum or Plasma Lipid Screening [facility] Start: 06-24-2027 Lipid panel Lipid Screening [facility] Start: 06-24-2027 LIPID SCREEN LIPID SCREEN [facility] Start: 01-30-2027 Urine microalbumin profile [facility] Start: 09-05-2025 LIPID SCREEN LIPID SCREEN [facility] Start: 06-24-2025 DIABETES SCREEN [facility]CREEN [facility] Start: 06-24-2025 Diabetes Screening Diabetes Screenin g [facility] Start: 04-26-2025 Anxiety Screening Anxiety Screening [facility] Start: 04-26-2025 Covid-19 Vaccine () Covid-19 Vaccine () [facility] Comment on above: Postponed from 01/06 (Declined at this time) Start: 04-26-2025 Depression Screening Depression Scre ening [facility] Start: 04-26-2025 Hepatitis C screening Hepatitis C Sc nicolas [facility] Comment on above: Postponed from 05/20 (Declined at this time) Start: 04-26-2025 HIV screening HIV Screening [facility] Comment on above: Postponed from 05/20 (Declined at this time) Start: 11-04-2024 Influenza vaccination Influenza Vacc ine (#1) [facility] Comment on above: Postponed from 01/06 (Declined at this time) Start: 04-26-2024 End: 04-26-2024 Patient encounter procedure 04/26/2024 7:40 AM EST Office Visit [facility] [address] [place], [place] [id number] Glory Torres APRN.MEDICAID ANALYST [address] [place] [address] Shingle active nerves. appointment to justify meds [facility] Comment on above: Shingle active nerve s. appointment to justify meds Start: 03-07-2024 End: 03-07-2024 Patient encounter procedure 03/07/2024 8:00 AM EDT Office Visit [facility] [address] [place] [address] Cheyanne Klein MD [address] [place], [place] [id number] 6 weeks VaTa [facility] Comment on above: 6 weeks VaTa Start: 01-07-2024 Covid-19 Vaccine () Covid-19 Vaccine () [facility] Start: 01-07-2024 Covid-19 Vaccine ( season) Covid-19 Vaccine ( season) [facility] Start: 01-07-2024 Influenza vaccination Influenza Vacc ine (#1) [facility] Start: 09-06-2023 DIABETES SCREEN DIABETES SCREEN [facility] Start: 05-08-2023 Depression Assessment Depression Ass essment [facility] Start: 01-06-2023 Covid-19 Vaccine ( season) Covid-19 Vaccine () [facility] Start: 01-06-2023 Influenza vaccination [facility] Start: 06-13-2022 End: 08-13-2022 CBC panel - Blood by Automated count CBC Lab Routine Balance problem Expected: 06/13/2022, Expires: 08/13/2022 [facility] Work Phone: Comment on above: Expected: 06/13/2022 , Expires: 08/13/2022 Start: 06-13-2022 End: 08-13-2022 Cobalamin (Vitamin B12) [Mass/volume] in Serum or Plasma VITAMIN B12 BLOOD Lab Routine Balance problem Expected: 06/13/2022, Expires: 08/13/2022 [facility] Work Phone: Comment on above: Expected: 06/13/2022 , Expires: 08/13/2022 Start: 06-13-2022 End: 08-13-2022 Comprehensive metabolic 2000 panel - Serum or Plasma COMP METABOLIC PANEL Lab Routine Hyperlipidemia, unspecified hyperlipidemia type Expected: 06/13/2022 (Approximate), Expires: 08/13/2022 [facility] Work Phone: Comment on above: Expected: 06/13/2022 (Approximate), Expires: 08/13/2022 Start: 06-13-2022 End: 08-13-2022 Lipid 1996 panel - Serum or Plasma LIPID PANEL BASIC Lab Routine Hyperlipidemia, unspecified hyperlipidemia type Expected: 06/13/2022, Expires: 08/13/2022 [facility] Work Phone: Comment on above: Expected: 06/13/2022 , Expires: 08/13/2022 Start: 06-13-2022 End: 08-13-2022 Thyrotropin [Units/volume] in Serum or Plasma TSH BLD Lab Routine Balance problem Expected: 06/13/2022, Expires: 08/13/2022 [facility] Work Phone: Comment on above: Expected: 06/13/2022 , Expires: 08/13/2022 Start: 05-08-2022 DEPRESSION ASSESSMENT DEPRESSION ASS ESSMENT [facility] Start: 01-06-2022 Influenza vaccination INFLUENZA (#1) [facility] Start: 07-31-2021 COVID-19 VACCINE (4 - Booster for Moderna series) COVID-19 VACCINE (4 - Booster for Moderna series) [facility] Start: 2021 COLOGUARD (FIT-DNA) COLOGUARD (FIT-D NA) [facility] Start: [address] COLONOGRAPHY [facility] Start: 2021 FECAL OCCULT BLOOD FECAL OCCULT BLOO D [facility] Start: 2021 Screening for malign ant neoplasm of colon [facility] Start: 2021 SIGMOIDOSCOPY SIGMOIDOSCOPY [facility] Start: 05-08-2021 DEPRESSION ASSESSMENT DEPRESSION ASS ESSMENT [facility] Start: 1995 Hepatitis B Vaccine (1 of 3 - 19+ 3-dose series) Hepatitis B Vaccine (1 of 3 - 19+ 3-dose series) [facility] Start: 1995 Pneumococcal vaccination Pneumococcal Vaccine (1 of 2 - PCV) [facility] Start: 1994 Anxiety Screening Anxiety Screening [facility] [facility]: [facility] Depression Screening Depression Scre ening [facility] Start: 1994 HEPATITIS C SCREENING HEPATITIS C [facility] Start: 1994 Hepatitis C screening Hepatitis C [facility] Start: 1994 HIV SCREENING HIV SCREENING [facility] Start: 1994 HIV screening HIV Screening [facility] Start: 1982 PNEUMOCOCCAL (1 - PCV) PNEUMOCOCCAL (1 - PCV) [facility] Start: 1982 Pneumococcal vaccination [facility] Start: 1976 HEPATITIS B (1 of 3 - 3-dose series) HEPATITIS B (1 of 3 - 3-dose series) [facility] Start: 1976 Hepatitis B Vaccine (1 of 3 - 3-dose series) Hepatitis B Vaccine (1 of 3 - 3-dose series) [facility] EMG(NEURO/NI) EMG(NEURO/NI) EM G Routine Wrist lump, right Carpal tunnel syndrome of right wrist Ordered: 04/04/2022 [facility] Work Phone: Comment on above: Ordered: 04/04/2022 [facility] Immunizations Immunization Date Immunization Notes Care Provider Yaneli luis 04-25-2019 influenza, injectabl e, quadrivalent, contains preservative Glory Tannhof SUPPLY AIDE.[facility] Work Phone: [facility] 04-25-2019 influenza virus vaccine, unspecified formulation Mri (I-Stat/1.5t) Work Phone: [facility] 01-30-2017 influenza, injectabl e, quadrivalent, contains preservative Glory Tannhof SUPPLY AIDE.[facility] Work Phone: [facility] 01-30-2017 tetanus toxoid, redu verónica diphtheria toxoid, and acellular pertussis vaccine, adsorbed Glory Tannhof SUPPLY AIDE.[facility] Work Phone: [facility] 03-21-2016 influenza, injectabl e, quadrivalent, contains preservative Glory Tannhof SUPPLY AIDE.[facility] Work Phone: [facility] 02-20-2015 influenza, injectabl e, quadrivalent, contains preservative Glory Tannhof SUPPLY AIDE.[facility] Work Phone: [facility] 03-15-2013 influenza virus vaccine, unspecified formulation Glory Tannhof SUPPLY AIDE.[facility] Work Phone: [facility] Work Phone: 02-23-2012 influenza virus vaccine, unspecified formulation Glory Tannhof SUPPLY AIDE.[facility] Work Phone: [facility] 02-18-2011 influenza virus vaccine, live, attenuated, for intranasal use Glory Tannhof SUPPLY AIDE.MEDICAID ANALYST Work Phone: [facility] Work Phone: 03-23-2010 influenza virus vaccine, unspecified formulation Glory Tannhof SUPPLY AIDE.[facility] Work Phone: [facility] Work Phone: 03-02-2009 influenza virus vaccine, unspecified formulation Glory Tannhof SUPPLY AIDE.[facility] Work Phone: [facility] Work Phone: 11-01-2006 tetanus toxoid, redu verónica diphtheria toxoid, and acellular pertussis vaccine, adsorbed Gloyr Torres SUPPLY AIDE.[facility] Work Phone: [facility] Work Phone: Payers Date Payer Category Payer Unknown [id number] 2024 Self-pay 2022 Unknown [employer] PPO [id number] 2022-Present [phone] [address] [place] [address] PPO [id number] 2022 Unknown [id number] 1975 Unknown [id number] 1975 Unknown [id number] Unknown [facility] [id number] Unknown [id number] Social History Date Type Detail Facility Start: 03-11-2022 End: 01-09-2024 Tobacco smoking status MTIS Smokes tobacco daily [facility] Start: 05-08-2023 End: 05-08-2019 History of tobacco use Cigarette Smoker [facility] Start: 03-11-2022 End: 10-21-2022 Cigarettes smoked current (pack per day) - Reported 0.5 [facility] Start: 03-11-2022 End: 04-26-2024 Tobacco use and exposure Smokeless tobacco non-user [facility] Start: 03-11-2022 End: 04-26-2024 Alcohol intake Current drinker of alcohol (finding) [facility] Start: 03-11-2022 End: 08-17-2022 History SDOH Housing Unable to Pay 2 [facility] Start: 03-11-2022 End: 08-17-2022 History SDOH Housing Places Lived 1 [facility] Start: 03-11-2022 Tobacco Comment 10 cigs per day [facility] Start: 1975 Sex Assigned At Not on file [facility] Start: 03-01-2022 End: 04-04-2022 Exposure to SARS-CoV-2 (event) Not sure [facility] Start: 07-18-2014 Tobacco smoking stat us NHIS Unknown if ever smoked [facility] Start: 1975 Sex Assigned At Male W [facility] Start: 08-17-2022 History SDOH Alcohol Frequency 98 [facility] Start: 08-17-2022 History SDOH Social Connections Phone 5 [facility] Start: 08-17-2022 History SDOH Social Connections Meetings 3 [facility] Start: 08-17-2022 History SDOH Physica l Activity DPW 6 [facility] Start: 08-17-2022 History SDOH Financial 4 [facility] Start: 10-21-2022 Tobacco Comment 10-12 cigs per day [facility] Start: 08-16-2022 End: 10-21-2022 Social connection and isolation panel [facility] Do you belong to any clubs or organizations such as presybeterian groups, unions, fraternal or athletic groups, or school groups? Yes [facility] Are you now , , , , never or living with a partner? [facility] How often to you hav e a drink containing alcohol? Patient refused [facility] How often do you hav e 6 or more drinks on 1 occasion? Less than monthly [facility] How hard is it for y ou to pay for the very basics like food, housing, medical care, and heating Not very hard [facility] Do you feel stress - tense, restless, nervous, or anxious, or unable to sleep at night because your mind is troubled all the time - these days [OSQ] To some extent [facility] (I/We) worried wheharesh er (my/our) food would run out before (I/we) got money to buy more. Never true [facility] In the past 12 month s, was there a time when you were not able to pay the mortgage or rent on time? No [facility] Start: 01-09-2024 Tobacco Comment Currently not smoking - 7 days no smoking 01/09/24 [facility] Start: 04-26-2024 Tobacco smoking stat us NHIS Ex-smoker [facility] Start: 05-08-2023 End: 05-08-2019 History of tobacco use Current smoker [facility] Medical Equipment Procedure Code Equipment Code Equipment Origin al Text Equipment Identifier Dates 0---Dev Fx Fstfx 360d Crv Menis - [id number] Start: 03-21-2013 Comment on above: Description: FAST-FI X CURVED [id number] 07 0534-Sub Bngf Prognx Dbm Bov Cllgn - [id number] Start: 03-21-2013 Comment on above: Description: PROGENI X PUTTY [id number] 07 0534-Sub Bngf 30x7mm Btcp Ost Wdg - [id number] Start: 03-21-2013 Comment on above: Description: OSFERIO N BONE VOID FILLER [id number] 07 0534-Plate 7.5mm Opn Wdg Osteotmy - [id number] Start: 03-21-2013 Comment on above: Description: TIBIAL OPENING WEDGE OSTEO PLATE [id number] 07 0534-Partially Threaded 50 Screw [id number] Start: 03-21-2013 Comment on above: Description: PARTIAL LY THREADED SCREW 0---52mm Fully Threaded Screw [id number] Start: 03-21-2013 Comment on above: Description: CORTICA L SCREW 0---50mm Fully Threaded Screw [id number] Start: 03-21-2013 Comment on above: Description: CORTICA L SCREW 0---Dev Fx Fstfx 360d Str Menis - [id number] Start: 03-21-2013 Comment on above: Description: FAST-FI X STRAIGHT 0---Dev Fx Fstfx 360d Str Menis - [id number] Start: 03-21-2013 Comment on above: Description: FAST-FI X STRAIGHT 0---Biocleanse Meniscus, Medial Right; [id number] Start: 03-21-2013 Comment on above: Description: [employer] Functional Status Date Assessment Result Facility 01-05-2024 Functional Status Independent [facility] 01-05-2024 Functional Status Standard Safet y ID band on, Call device within reach, Bed in low position, Wheels locked, Upper/Half-Length side-rails up, personal items within reach, Bedside Cart Locked [facility] 01-04-2024 Functional Status Up ad humberto [facility] Mental Status Date Assessment Result Facility 01-05-2024 Mental Status Orientation Oriented x 4 [facility] 01-05-2024 Mental Status [facility] 01-04-2024 Mental Status Oriented x 4 [facility] Clinical Notes 05-13-2021 to 04-26-2024 Patient InstructionsGlory Torres APRN.CNP - 04/26/2024 7:40 AM ESTTelephone Encounter - Lita Henson MA - 04/25/2024 8:08 AM ESTTelephone Encounter - Lita Henson MA - 04/25/2024 8:08 AM EST Note Date & Type Note Facility 04-26-2024 Instructions Glory Torres APRN.CNP - 04/26/2024 8:01 AM EST Increase Gabapentin 600 mg three times daily. Continue to take all medications as prescribed. Continue to eat a well balanced diet and stay active Follow up in 1 year or sooner as needed. Health Promotion: - Eat healthy -- go to [place] [employer] to get started - Have a yearly physical - Mammogram yearly after age 40 - Get at least 30 minutes of physical activity daily - Get at least 7 to 8 hours of sleep each night - Reach and maintain a healthy weight - Get help to quit or don't start smoking - Limit alcohol use to one drink or less - Do not use illegal drugs or misuse prescription drugs - Wear a helmet when riding a bike and wear protective gear for sports - Wear a seatbelt in cars and not text and drive - Wear sunscreen documented in this encounter [facility] 04-26-2024 History of Presen t illness Narrative This is a 48 year old male who presents today with: Patient presents with: Physical HISTORY OF PRESENT ILLNESS: Neville Fox is a 48 year old male. Patient presents with: Physical Diet: Eating a well balanced diet. Exercise: Staying active. Vision: Had exam, wearing glasses.Dental: Had exam. Sleep: 6-8 hours per night. Mood:See below Shingles: Diagnosed with shingles by ER, evaluated by cut in station operator 03/07/2024. Taking gabapentin 400 mg 3 times daily. Refers that rash has heal but still having ongoing pain. Gabapentin has been mildly helpful. No difficulty with vision. Upset how situation was handled within [facility]. Would like to look at establishing care with another provider at a different hospital system in the future. Anxiety: Taking Wellbutrin XL 150 mg and Zoloft 100 mg, 2 tablets daily. Symptoms well-controlled. Denies SI/HI. Chronic Knee Pain: Taking Celebrex 200 mg daily. Was following with Dr. Daviosn in Orthopedics. Discussion of knee replacement in the future. Lipids: Taking Crestor 10 mg daily. Colonoscopy: Last completed 2021, due in 10 years. Vaccines: Denied wanting any vaccines at this time. PAST MEDICAL HISTORY: PAST MEDICAL HISTORY Diagnosis Date Arthritis Herpes zoster left Eye Internal derangement of knee Shingles Unspecified otitis media Recurrent otitis PAST SURGICAL HISTORY Procedure Laterality Date ARTHROSCOPY KNEE DIAGNOSTIC W/WO SYNOVIAL BX SPX between high school and summer 2008 most recent Arthroscopy, knee, x5 right knee, COLONOSCOPY 07/14/2021 repeat in 10 years ALLERGIES Patient has no known allergies. MEDICATIONS Current Outpatient Medications Medication Sig gabapentin (NEURONTIN) 400 mg capsule Take 1 capsule by mouth three times a day for 30 days. buPROPion XL (WELLBUTRIN XL) 150 mg 24 hr tablet Take 1 tablet by mouth once daily. celecoxib (CELEBREX) 200 mg capsule Take 1 capsule by mouth once daily. rosuvastatin (CRESTOR) 10 mg tablet Take 1 tablet by mouth daily at bedtime. sertraline (ZOLOFT) 100 mg tablet Take 2 tablets by mouth once daily. No current facility-administered medications for this visit. FAMILY HISTORY Problem Relation Age of Onset No Ocular Disease Father No Ocular Disease Mother Colon Cancer Mother age 61 Hyperlipidemia Mother Heart Sister Hypertension Paternal Grandmother Diabetes Paternal Grandmother Social History Tobacco Use Smoking status: Every Day Current packs/day: 0.50 Average packs/day: 0.5 packs/day for 15.0 years (7.5 ttl pk-yrs) Types: Cigarettes Smokeless tobacco: Never Tobacco comments: Currently not smoking - 7 days no smoking 01/09/24 Vaping Use Vaping status: Never Used Substance Use Topics Alcohol use: Yes Comment: very seldom Drug use: Yes Frequency: 7.0 times per week Types: Marijuana Comment: + marijuana tox. Daily REVIEW OF SYSTEMS GENERAL: No weight loss, malaise or fevers/chills HEENT: Negative for frequent or significant headaches, No changes in hearing or vision. NECK: Negative for lumps, goiter, pain and significant neck swelling RESPIRATORY: Negative for cough, hemoptysis, wheezing, dyspnea or shortness of breath CARDIOVASCULAR: Negative for chest pain, leg swelling, orthopnea, or palpitations GI: No nausea, vomiting, or diarrhea/constipation. No hematochezia/melena. No heartburn or reflux symptoms. : No history of dysuria, frequency or incontinence MUSCULOSKELETAL: Negative for joint pain or swelling. SKIN: Negative for lesions, rash, and itching ENDOCRINE: Negative for cold or heat intolerance, polyuria, polydipsia and goiter NEURO: No history of headaches, syncope, paralysis, seizures or tremors MOOD: Negative for depression, anxiety, or suicidal ideation. EXAM: BP 120/82 Pulse 63 Resp 16 Wt 93.6 kg (206 lb 5.6 oz) SpO2 97% BMI 29.61 kg/m PHYSICAL EXAM: General Appearance: Well appearing, alert, in no acute distress, well-hydrated, well nourished. Skin: Skin color, texture, turgor normal, no suspicious rashes or lesions. Head: Normocephalic, no masses, lesions, tenderness or abnormalities. Eyes: Anicteric sclera. Pupils are equally round and reactive to light. Extraocular movements are intact. Ears: External ears normal, canals clear. TMs pearly avila. Lungs: Lungs clear to auscultation. No wheezing, rhonchi, rales. Heart: RRR without murmur, gallop, or rubs. No ectopy. Abdomen: Normal abdominal exam, Abdomen soft, non-tender. Bowel sounds normal. No masses, organomegaly. Extremities: No deformities, edema, skin discoloration, clubbing or cyanosis. Good capillary refill. Musculoskeletal: No joint swelling, deformity, or tenderness. Peripheral Pulses: Normal, Capillary refill <2secs, strong peripheral pulses, Pulses palpable. Neurologic: Gait normal. Reflexes normal and symmetric. Sensation grossly intact. Mood: Pleasant, engaged, good eye contact. ASSESSMENT/PLAN: 1. Wellness examination - ICD9: V70.0, ICD10: Z00.00 (primary diagnosis) - Counseled on healthy diet and regular exercise - Discussed need for and benefit of weight loss. BMI 29.61 kg/(m^2) - Follow up for annual exam in one year - Denied wanting to get labs at this time. 2. Herpes zoster with complication - ICD9: 053.8, ICD10: B02.8 - Increase Gabapentin 600 mg TID - GABAPENTIN 600 MG TABLET 3. Chronic pain of right knee - ICD9: 719.46, 338.29, ICD10: M25.561, G89.29 - Stable, refill provided. - CELECOXIB 200 MG CAPSULE 4. Adjustment disorder with anxious mood - ICD9: 309.24, ICD10: F43.22 - Stable, refill provided. - SERTRALINE 100 MG TABLET - BUPROPION XL 150 MG TAB 5. Hyperlipidemia, unspecified hyperlipidemia type - ICD9: 272.4, ICD10: E78.5 - Control undetermined, due for labs - Continue current medications - Counseled on healthy diet and regular exercise - ROSUVASTATIN 10 MG TABLET 6. Screening for depression - ICD9: V79.0, ICD10: Z13.31 - DEPRESSION SCREENING 7. Encounter for screening examination for other mental health and behavioral disorders - ICD9: V79.8, ICD10: Z13.39 - ANXIETY SCREENING Follow-up in 1 year or sooner as needed. Discussed treatment plan and patient voices understanding. Patient's questions answered appropriately. Medications and potential side effects were discussed and patient voices understanding. Glory Torres APRN.SHARATH This note was partially generated using [employer] voice recognition system. Note was reviewed for accuracy. There may be minor misspellings or grammar miscues with [employer] voice recognition. documented in this encounter [facility] 04-26-2024 Note HNO ID: [id number] Author: GLORY TORRES APRN.MEDICAID ANALYST Service: ? Author Type: Nurse Practitioner Type: Progress Notes Filed: 04/26/2024 08:21 Note Text: This is a 48 year old male who presents today with: Patient presents with: Physical HISTORY OF PRESENT ILLNESS: Neville Fox is a 48 year old male. Patient presents with: Physical Diet: Eating a well balanced diet. Exercise: Staying active. Vision: Had exam, wearing glasses.Dental: Had exam. Sleep: 6-8 hours per night. Mood:See below Shingles: Diagnosed with shingles by ER, evaluated by cut in station operator 03/07/2024. Taking gabapentin 400 mg 3 times daily. Refers that rash has heal but still having ongoing pain. Gabapentin has been mildly helpful. No difficulty with vision. Upset how situation was handled within [facility]. Would like to look at establishing care with another provider at a different hospital system in the future. Anxiety: Taking Wellbutrin XL 150 mg and Zoloft 100 mg, 2 tablets daily. Symptoms well-controlled. Denies SI/HI. Chronic Knee Pain: Taking Celebrex 200 mg daily. Was following with Dr. Davison in Orthopedics. Discussion of knee replacement in the future. Lipids: Taking Crestor 10 mg daily. Colonoscopy: Last completed 2021, due in 10 years. Vaccines: Denied wanting any vaccines at this time. PAST MEDICAL HISTORY: PAST MEDICAL HISTORY Diagnosis Date Arthritis Herpes zoster left Eye Internal derangement of knee Shingles Unspecified otitis media Recurrent otitis PAST SURGICAL HISTORY Procedure Laterality Date ARTHROSCOPY KNEE DIAGNOSTIC W/WO SYNOVIAL BX SPX between high school and summer 2008 most recent Arthroscopy, knee, x5 right knee, COLONOSCOPY 07/14/2021 repeat in 10 years ALLERGIES Patient has no known allergies. MEDICATIONS Current Outpatient Medications Medication Sig gabapentin (NEURONTIN) 400 mg capsule Take 1 capsule by mouth three times a day for 30 days. buPROPion XL (WELLBUTRIN XL) 150 mg 24 hr tablet Take 1 tablet by mouth once daily. celecoxib (CELEBREX) 200 mg capsule Take 1 capsule by mouth once daily. rosuvastatin (CRESTOR) 10 mg tablet Take 1 tablet by mouth daily at bedtime. sertraline (ZOLOFT) 100 mg tablet Take 2 tablets by mouth once daily. No current facility-administered medications for this visit. FAMILY HISTORY Problem Relation Age of Onset No Ocular Disease Father No Ocular Disease Mother Colon Cancer Mother age 61 Hyperlipidemia Mother Heart Sister Hypertension Paternal Grandmother Diabetes Paternal Grandmother Social History Tobacco Use Smoking status: Every Day Current packs/day: 0.50 Average packs/day: 0.5 packs/day for 15.0 years (7.5 ttl pk-yrs) Types: Cigarettes Smokeless tobacco: Never Tobacco comments: Currently not smoking - 7 days no smoking 01/09/24 Vaping Use Vaping status: Never Used Substance Use Topics Alcohol use: Yes Comment: very seldom Drug use: Yes Frequency: 7.0 times per week Types: Marijuana Comment: + marijuana tox. Daily REVIEW OF SYSTEMS GENERAL: No weight loss, malaise or fevers/chills HEENT: Negative for frequent or significant headaches, No changes in hearing or vision. NECK: Negative for lumps, goiter, pain and significant neck swelling RESPIRATORY: Negative for cough, hemoptysis, wheezing, dyspnea or shortness of breath CARDIOVASCULAR: Negative for chest pain, leg swelling, orthopnea, or palpitations GI: No nausea, vomiting, or diarrhea/constipation. No hematochezia/melena. No heartburn or reflux symptoms. : No history of dysuria, frequency or incontinence MUSCULOSKELETAL: Negative for joint pain or swelling. SKIN: Negative for lesions, rash, and itching ENDOCRINE: Negative for cold or heat intolerance, polyuria, polydipsia and goiter NEURO: No history of headaches, syncope, paralysis, seizures or tremors MOOD: Negative for depression, anxiety, or suicidal ideation. EXAM: BP 120/82 Pulse 63 Resp 16 Wt 93.6 kg (206 lb 5.6 oz) SpO2 97% BMI 29.61 kg/m? PHYSICAL EXAM: General Appearance: Well appearing, alert, in no acute distress, well-hydrated, well nourished. Skin: Skin color, texture, turgor normal, no suspicious rashes or lesions. Head: Normocephalic, no masses, lesions, tenderness or abnormalities. Eyes: Anicteric sclera. Pupils are equally round and reactive to light. Extraocular movements are intact. Ears: External ears normal, canals clear. TMs pearly avila. Lungs: Lungs clear to auscultation. No wheezing, rhonchi, rales. Heart: RRR without murmur, gallop, or rubs. No ectopy. Abdomen: Normal abdominal exam, Abdomen soft, non-tender. Bowel sounds normal. No masses, organomegaly. Extremities: No deformities, edema, skin discoloration, clubbing or cyanosis. Good capillary refill. Musculoskeletal: No joint swelling, deformity, or tenderness. Peripheral Pulses: Normal, Capillary refill <2secs, strong peripheral pulses, Pulses palpable. (more content not included)... [facility] 04-25-2024 Telephone encounter Note Sent update to pt regarding Gabapentin. Pt was sent message notifying him to f/u regarding med f/u. Apologized regarding care. Lita Henson MA [facility] 04-25-2024 Miscellaneous Notes Sent update to pt regarding Gabapentin. Pt was sent message notifying him to f/u regarding med f/u. Apologized regarding care. Lita Henson MA documented in this encounter [facility] 04-25-2024 Telephone encounter Note The following approved medication requests have been transmitted electronically. Requested Prescriptions Pending Prescriptions Disp Refills gabapentin (NEURONTIN) 400 mg capsule 90 capsule 0 Sig: Take 1 capsule by mouth three times a day for 30 days. Diaz Mar APRN.SHARATH [facility] 04-25-2024 Miscellaneous Notes The following approved medication requests have been transmitted electronically. Requested Prescriptions Pending Prescriptions Disp Refills gabapentin (NEURONTIN) 400 mg capsule 90 capsule 0 Sig: Take 1 capsule by mouth three times a day for 30 days. Diaz Mar APRN.CNP Prescription Refill Information The patient has been identified by name and date of : Yes Caregiver verified no other encounters exist for this prescription request: Yes Caregiver confirmed with patient/requestor that no other refills are due, in the near future, with this provider at this time: Yes The last office visit in the department: 01/09/24 Does the patient have a future office visit with this provider/department: Yes My chart message sent Requested Prescriptions Pending Prescriptions Disp Refills gabapentin (NEURONTIN) 400 mg capsule 90 capsule 0 Sig: Take 1 capsule by mouth three times a day for 30 days. Chelsey Hill LPN April 24, 2024 10:03 AM documented in this encounter [facility] 04-24-2024 Telephone encounter Note Prescription Refill Information The patient has been identified by name and date of : Yes Caregiver verified no other encounters exist for this prescription request: Yes Caregiver confirmed with patient/requestor that no other refills are due, in the near future, with this provider at this time: Yes The last office visit in the department: 01/09/24 Does the patient have a future office visit with this provider/department: Yes My chart message sent Requested Prescriptions Pending Prescriptions Disp Refills gabapentin (NEURONTIN) 400 mg capsule 90 capsule 0 Sig: Take 1 capsule by mouth three times a day for 30 days. Chelsey Hill LPN April 24, 2024 10:03 AM [facility] 03-07-2024 Telephone encounter Note OK to refill as ordered Citlalli Chaney MD [facility] 03-07-2024 Miscellaneous Notes OK to refill as ordered Citlalli Chaney MD The patient has been identified by name and date of : Yes Caregiver verified no other encounters exist for this prescription request: Yes Caregiver confirmed with patient/requestor that no other refills are due, in the near future, with this provider at this time: Yes The last office visit in the department: 01/09/2024 Does the patient have a future office visit with this provider/department: No Visit date not found Requested Prescriptions Pending Prescriptions Disp Refills gabapentin (NEURONTIN) 400 mg capsule 90 capsule 0 Sig: Take 1 capsule by mouth three times a day for 30 days. Bridgett Siegel LPN March 07, 2024 4:44 PM documented in this encounter [facility] 03-07-2024 Telephone encounter Note The patient has been identified by name and date of : Yes Caregiver verified no other encounters exist for this prescription request: Yes Caregiver confirmed with patient/requestor that no other refills are due, in the near future, with this provider at this time: Yes The last office visit in the department: 01/09/2024 Does the patient have a future office visit with this provider/department: No Visit date not found Requested Prescriptions Pending Prescriptions Disp Refills gabapentin (NEURONTIN) 400 mg capsule 90 capsule 0 Sig: Take 1 capsule by mouth three times a day for 30 days. Bridgett Siegel LPN March 07, 2024 4:44 PM [facility] 03-07-2024 Note HNO ID: [id number] Author: CHEYANNE KLEIN MD Service: ? Author Type: Physician Type: Progress Notes Filed: 03/07/2024 11:52 Note Text: (B02.8) Herpes zoster with complication (primary encounter diagnosis) Comment: Presented 01/12/2024 - Zoster V1 distribution with lesions on eyelid and keratitis and mild iritis (endo dusting) No retinal/choroidal involvement Lesions and iritis/keratitis resolved with 1 week of prednisolone and restarting the valtrex S/p course of prednisolone with slow weekly taper and valtrex coverage No recurrence after drop and valtrex course was completed Persistent neuropathic pain - neurontin helps but does not have any more Plan: Monitor - discussed symptoms of iritis flare F/u with PCP to consider a longer course of neurontin F/u with primary eye care provider SP as needed I have confirmed and edited as necessary the relevant ophthalmic history, ROS, and the neuro exam findings as obtained by others. I have seen and examined this patient. I have discussed the case and the management of this patient's care with the Resident/Fellow/Pelts Skinner, if applicable. I also have reviewed and agree with the assessment and plan as stated above and agree with all of its relevant components. Cheyanne Klein MD March 07, 2024 11:51 AM [facility] 03-07-2024 History of Presen t illness Narrative (B02.8) Herpes zoster with complication (primary encounter diagnosis) Comment: Presented 01/12/2024 - Zoster V1 distribution with lesions on eyelid and keratitis and mild iritis (endo dusting) No retinal/choroidal involvement Lesions and iritis/keratitis resolved with 1 week of prednisolone and restarting the valtrex S/p course of prednisolone with slow weekly taper and valtrex coverage No recurrence after drop and valtrex course was completed Persistent neuropathic pain - neurontin helps but does not have any more Plan: Monitor - discussed symptoms of iritis flare F/u with PCP to consider a longer course of neurontin F/u with primary eye care provider SP as needed I have confirmed and edited as necessary the relevant ophthalmic history, ROS, and the neuro exam findings as obtained by others. I have seen and examined this patient. I have discussed the case and the management of this patient's care with the Resident/Fellow/Pelts Skinner, if applicable. I also have reviewed and agree with the assessment and plan as stated above and agree with all of its relevant components. Cheyanne Klein MD March 07, 2024 11:51 AM documented in this encounter [facility] 02-07-2024 Note Addended by: CHEYANNE HINOJOSA on: 02/07/2024 11:50 PM Modules accepted: Orders [facility] 02-07-2024 Telephone encounter Note Refilled; 14 day supply given. This should get him through the taper course. Cheyanne Klein MD 02/07/2024 11:50 PM [facility] 02-07-2024 Miscellaneous Notes Addended by: CHEYANNE KLEIN on: 02/07/2024 11:50 PM Modules accepted: Orders Refilled; 14 day supply given. This should get him through the taper course. Cheyanne Klein MD 02/07/2024 11:50 PM Requested prescriptions last refilled 01/12/24. Pended to Dr. Klein to approve if appropriate. Prednisolone should be on a taper dose with patient at twice a day. Frances Goldberg RN February 07, 2024 3:00 PM Refill request for valACYclovir. Patient states he is using Prednisolone twice a day and will start using once a day on 02/11. States he was told to continue Valacyclovir while using Prednisolone. Please advise Rosana Soto February 07, 2024 1:55 PM documented in this encounter [facility] 02-07-2024 Telephone encounter Note Requested prescriptions last refilled 01/12/24. Pended to Dr. Klein to approve if appropriate. Prednisolone should be on a taper dose with patient at twice a day. Frances Goldberg RN February 07, 2024 3:00 PM [facility] 02-07-2024 Telephone encounter Note Refill request for valACYclovir. Patient states he is using Prednisolone twice a day and will start using once a day on 02/11. States he was told to continue Valacyclovir while using Prednisolone. Please advise Rosana Soto February 07, 2024 1:55 PM [facility] 01-19-2024 Telephone encounter Note The following approved medication requests have been transmitted electronically. Requested Prescriptions Signed Prescriptions Disp Refills gabapentin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 including over the counter medications, herbals and other supplements with you to your doctor s visit. Patients and families are reminded to discard old lists and to update any records with all medication providers or retail pharmacies. Medication Leaflets ondansetron (injection) (on ANDIE se ania) What is the most important information I should know about ondansetron? You should not use ondansetron if you are also using apomorphine (Apokyn). What is ondansetron? Ondansetron blocks the actions of chemicals in the body that can trigger nausea and vomiting. Ondansetron is used to prevent nausea and vomiting that may be caused by surgery or by medicine to treat cancer (chemotherapy). Ondansetron may be used for purposes not listed in this medication guide. What should I discuss with my healthcare provider before receiving ondansetron? You should not use this medicine if you are allergic to ondansetron, or if you are also using apomorphine (Apokyn). To make sure ondansetron is safe for you, tell your doctor if you have: liver disease; heart disease, congestive heart failure, a heart rhythm disorder; an electrolyte imbalance (such as low levels of potassium or magnesium in your blood); a personal or family history of Long QT syndrome; or a condition for which you take a diuretic or 'water pill.' Ondansetron is not expected to harm an unborn baby. Tell your doctor if you are . It is not known whether ondansetron passes into breast milk or if it could harm a nursing baby. Tell your doctor if you are breast-feeding a baby. How is ondansetron given? Ondansetron is injected into a vein through an IV. A healthcare provider will give you this injection. Ondansetron is usually given just before your surgery begins, or within 2 hours after surgery. To prevent nausea and vomiting caused by chemotherapy, ondansetron is given 30 minutes before the start of chemotherapy. A second and third dose of ondansetron are sometimes given 4 hours and 8 hours after the first dose. What happens if I miss a dose? Because you will receive ondansetron in a clinical setting, you are not likely to miss a dose. What happens if I overdose? Since this medicine is given by a healthcare professional in a medical setting, an overdose is unlikely to occur. What should I avoid after receiving ondansetron? This medicine may cause blurred vision and may impair your thinking or reactions. Be careful if you drive or do anything that requires you to be alert and able to see clearly. What are the possible side effects of ondansetron? Get emergency medical help if you have any of these signs of an allergic reaction: rash, hives; fever, chills, difficult breathing; swelling of your face, lips, tongue, or throat. Call your doctor at once if you have: headache with chest pain and severe dizziness, fainting, fast or pounding heartbeats; blurred vision or temporary vision loss (lasting from only a few minutes to several hours); severe constipation, stomach pain, or bloating; a light-headed feeling, like you might pass out; little or no urination; or high levels of serotonin in the body--agitation, hallucinations, fever, fast heart rate, overactive reflexes, nausea, vomiting, diarrhea, loss of coordination, fainting. Common side effects may include: diarrhea or constipation; drowsiness; fever; or headache. This is not a complete list of side effects and others may occur. Call your doctor for medical advice about side effects. You may report side effects to FDA at 0-155-UCY-1795. What other drugs will affect ondansetron? Ondansetron can cause a serious heart problem, especially if you use certain medicines at the same time, including antibiotics, antidepressants, heart rhythm medicine, antipsychotic medicines, and medicines to treat cancer, malaria, HIV or AIDS. Tell your doctor about all medicines you use, and those you start or stop using during your treatment with ondansetron. Receiving ondansetron while you are using certain other medicines can cause high levels of serotonin to build up in your body, a condition called 'serotonin syndrome,' which can be fatal. Tell your doctor if you also use: medicine to treat depression; medicine to treat a psychiatric disorder; a narcotic (opioid) medication; or medicine to prevent nausea and vomiting. This list is not complete and many other drugs can interact with ondansetron. This includes prescription and [id number] medicines, vitamins, and herbal products. Give a list of all your medicines to any healthcare provider who treats you. Where can I get more information? Your pharmacist can provide more information about ondansetron. Remember, keep this and all other medicines out of the reach of children, never share your medicines with others, and use this medication only for the indication prescribed. Every effort has been made to ensure that the information provided by [employer]. [employer] is accurate, up-to-date, and complete, but no guarantee is made to that effect. Drug information contained herein may be time sensitive. [employer] information has been compiled for use by healthcare practitioners and consumers in the [place] and therefore [employer] does not warrant that uses outside of the [place] are appropriate, unless specifically indicated otherwise. [employer]'s drug information does not endorse drugs, diagnose patients or recommend therapy. [employer] drug information is an informational resource designed to assist licensed healthcare practitioners in caring for their patients and/or to serve consumers viewing this service as a supplement to, and not a substitute for, the expertise, skill, knowledge and judgment of healthcare practitioners. The absence of a warning for a given drug or drug combination in no way should be construed to indicate that the drug or drug combination is safe, effective or appropriate for any given patient. [employer] does not assume any responsibility for any aspect of healthcare administered with the aid of information [employer] provides. The information contained herein is not intended to cover all possible uses, directions, precautions, warnings, drug interactions, allergic reactions, or adverse effects. If you have questions about the drugs you are taking, check with your doctor, nurse or pharmacist. Copyright 2036-3746 [employer]. Version: 7.01. Revision Date: 12/09/2022. ondansetron (oral) (on ANDIE se ania) What is the most important information I should know about ondansetron? You should not use ondansetron if you are also using apomorphine (Apokyn). What is ondansetron? Ondansetron blocks the actions of chemicals in the body that can trigger nausea and vomiting. Ondansetron is used to prevent nausea and vomiting that may be caused by surgery, cancer chemotherapy, or radiation treatment. Ondansetron may be used for purposes not listed in this medication guide. What should I discuss with my health care provider before taking ondansetron? You should not use ondansetron if: you are also using apomorphine (Apokyn); or you are allergic to ondansetron or similar medicines (dolasetron, granisetron, palonosetron). To make sure ondansetron is safe for you, tell your doctor if you have: liver disease; an electrolyte imbalance (such as low levels of potassium or magnesium in your blood); congestive heart failure, slow heartbeats; a personal or family history of long QT syndrome; or a blockage in your digestive tract (stomach or intestines). Ondansetron is not expected to harm an unborn baby. Tell your doctor if you are . It is not known whether ondansetron passes into breast milk or if it could harm a nursing baby. Tell your doctor if you are breast-feeding a baby. Ondansetron is not approved for use by anyone younger than 4 years old. Ondansetron orally disintegrating tablets may contain phenylalanine. Tell your doctor if you have phenylketonuria (PKU). How should I take ondansetron? Follow all directions on your prescription label. Do not take this medicine in larger or smaller amounts or for longer than recommended. Ondansetron can be taken with or without food. The first dose of ondansetron is usually taken before the start of your surgery, chemotherapy, or radiation treatment. Follow your doctor's dosing instructions very carefully. Take the ondansetron regular tablet with a full glass of water. To take the orally disintegrating tablet (Zofran ODT): Keep the tablet in its blister pack until you are ready to take it. Open the package and peel back the foil. Do not push a tablet through the foil or you may damage the tablet. Use dry hands to remove the tablet and place it in your mouth. Do not swallow the tablet whole. Allow it to dissolve in your mouth without chewing. Swallow several times as the tablet dissolves. To use ondansetron oral soluble film (strip) (Zuplenz): Keep the strip in the foil pouch until you are ready to use the medicine. Using dry hands, remove the strip and place it on your tongue. It will begin to dissolve right away. Do not swallow the strip whole. Allow it to dissolve in your mouth without chewing. Swallow several times after the strip dissolves. If desired, you may drink liquid to help swallow the dissolved strip. Wash your hands after using Zuplenz. Measure liquid medicine with the dosing syringe provided, or with a special dose-measuring spoon or medicine cup. If you do not have a dose-measuring device, ask your pharmacist for one. Store at room temperature away from moisture, heat, and light. Store liquid medicine in an upright position. What happens if I miss a dose? Take the missed dose as soon as you remember. Skip the missed dose if it is almost time for your next scheduled dose. Do not take extra medicine to make up the missed dose. What happens if I overdose? Seek emergency medical attention or call the Poison Help line at . Overdose symptoms may include sudden loss of vision, severe constipation, feeling light-headed, or fainting. What should I avoid while taking ondansetron? Ondansetron may impair your thinking or reactions. Be careful if you drive or do anything that requires you to be alert. What are the possible side effects of ondansetron? Get emergency medical help if you have signs of an allergic reaction: rash, hives; fever, chills, difficult breathing; swelling of your face, lips, tongue, or throat. Call your doctor at once if you have: severe constipation, stomach pain, or bloating; headache with chest pain and severe dizziness, fainting, fast or pounding heartbeats; fast or pounding heartbeats; jaundice (yellowing of the skin or eyes); blurred vision or temporary vision loss (lasting from only a few minutes to several hours); high levels of serotonin in the body--agitation, hallucinations, fever, fast heart rate, overactive reflexes, nausea, vomiting, diarrhea, loss of coordination, fainting. Common side effects may include: diarrhea or constipation; headache; drowsiness; or tired feeling. This is not a complete list of side effects and others may occur. Call your doctor for medical advice about side effects. You may report side effects to FDA at 3-276-LWT-7204. What other drugs will affect ondansetron? Ondansetron can cause a serious heart problem, especially if you use certain medicines at the same time, including antibiotics, antidepressants, heart rhythm medicine, antipsychotic medicines, and medicines to treat cancer, malaria, HIV or AIDS. Tell your doctor about all medicines you use, and those you start or stop using during your treatment with ondansetron. Taking ondansetron while you are using certain other medicines can cause high levels of serotonin to build up in your body, a condition called 'serotonin syndrome,' which can be fatal. Tell your doctor if you also use: medicine to treat depression; medicine to treat a psychiatric disorder; a narcotic (opioid) medication; or medicine to prevent nausea and vomiting. This list is not complete and many other drugs can interact with ondansetron. This includes prescription and iajg-jnm-[id number] medicines, vitamins, and herbal products. Give a list of all your medicines to any healthcare provider who treats you. Where can I get more information? Your pharmacist can provide more information about ondansetron. Remember, keep this and all other medicines out of the reach of children, never share your medicines with others, and use this medication only for the indication prescribed. Every effort has been made to ensure that the information provided by [employer]. [employer]') is accurate, up-to-date, and complete, but no guarantee is made to that effect. Drug information contained herein may be time sensitive. [employer] information has been compiled for use by healthcare practitioners and consumers in the [place] and therefore [employer] does not warrant that uses outside of the [place] are appropriate, unless specifically indicated otherwise. [employer]'s drug information does not endorse drugs, diagnose patients or recommend therapy. [employer] drug information is an informational resource designed to assist licensed healthcare practitioners in caring for their patients and/or to serve consumers viewing this service as a supplement to, and not a substitute for, the expertise, skill, knowledge and judgment of healthcare practitioners. The absence of a warning for a given drug or drug combination in no way should be construed to indicate that the drug or drug combination is safe, effective or appropriate for any given patient. [facility] does not assume any responsibility for any aspect of healthcare administered with the aid of information [facility] provides. The information contained herein is not intended to cover all possible uses, directions, precautions, warnings, drug interactions, allergic reactions, or adverse effects. If you have questions about the drugs you are taking, check with your doctor, nurse or pharmacist. Copyright 4379-9845 [employer]. Version: 16.. Revision Date: 12/08/2022. Education Materials Vomiting (Adult) Vomiting is a common symptom that may be due to different causes. These include gastroenteritis ("stomach flu"), food poisoning and gastritis. There are other more serious causes of vomiting which may be hard to diagnose early in the illness. Therefore, it is important to watch for the warning signs listed below. The main danger from repeated vomiting is dehydration. This is due to excess loss of water and minerals from the body. When this occurs, your body fluids must be replaced. Home care If symptoms are severe, rest at home for the next 24 hours. Because your symptoms may be from an infection, wash your hands often and well. If soap and water are not available, use alcohol-based management retail intern to keep from spreading the infection to others. Wash your hands for at least 20 seconds. Humming the happy birthday song twice while you wash is an easy way to make sure you've washed for 20 seconds. Wash your hands after using the toilet, before and after preparing food, before eating food, after changing a diaper, cleaning a wound, caring for a sick person, and blowing your nose, coughing, or sneezing. You should also wash your hands after caring for someone who is sick, touching pet food, or treats, and touching an animal, or animal waste. You may use acetaminophen or NSAID medicines like ibuprofen or naproxen to control fever, unless another medicine was prescribed. If you have chronic liver or kidney disease or ever had a stomach ulcer or gastrointestinal bleeding, talk with your doctor before using these medicines. Aspirin should never be used in anyone under 18 years of age who is ill with a fever. It may cause severe liver damage. Don't use NSAID medicines if you are already taking one for another condition (like arthritis) or are on aspirin (such as for heart disease, or after a stroke) Don't use tobacco and or drink alcohol, which may worsen your symptoms. If medicines for vomiting were prescribed, take as directed. Once vomiting stops, then follow these guidelines: During the first 12 to 24 hours follow the diet below: Fruit juices. Apple, grape juice, clear fruit drinks, and electrolyte replacement drinks. Beverages. Soft drinks without caffeine; mineral water (plain or flavored), decaffeinated tea and coffee. Soups. Clear broth and bouillon Desserts. Plain gelatin, ice pops, and fruit juice bars. As you feel better, you may add 6 to 8 ounces of yogurt per day. During the next 24 hours you may add the following to the above: Hot cereal, plain toast, bread, rolls, crackers Plain noodles, rice, mashed potatoes, chicken noodle or rice soup Unsweetened canned fruit such as applesauce, bananas (avoid pineapple and citrus) Limit caffeine and chocolate. No spices or seasonings except salt. During the next 24 hours: Gradually resume a normal diet, as you feel better and your symptoms lessen. Follow-up care Follow up with your healthcare provider, or as advised. When to seek medical advice Call your healthcare provider right away if any of these occur: Constant right-sided lower belly pain or increasing general belly pain Continued vomiting (unable to keep liquids down) for 24 hours Vomiting blood or coffee grounds Swollen belly Frequent diarrhea (more than 5 times a day); blood (red or black color) or mucus in diarrhea Reduced urine output or extreme thirst Weakness, dizziness or fainting Unusually drowsy or confused Fever of 100.4 F (38 C) oral or higher, or as directed Yellow color of the eyes or skin [id number] [employer]. [address] [place] [address], [place] [address]. All rights reserved. This information is not intended as a substitute for professional medical care. Always follow your healthcare professional's instructions. Additional Information VACCINATE! IT SAVES LIVES! Members of the community who have not yet received the COVID-19 vaccine and would like to receive it can visit one of [facility] vaccine clinics. There are many vaccine clinic locations within the [facility]. For locations and available times, please visit [email or web address] [email or web address] It is important to note that some COVID mobile vaccine clinics are held outdoors and may be canceled in rainy or stormy conditions. To learn more about pediatric vaccinations (ages 5-11), we invite you to visit the [facility] webpage. https://www.Bizibles.org/p ages/5215-Otkub-Fwjdkwafvlq-Freq ulgftj-Dtjvf-Xcwbwldkz.html To learn more about the COVID-19 vaccine, we invite you to visit the CDC website for a list of frequently asked questions. https://www.cdc.gov/coronavirus/ 2019-ncov/vaccines/faq.html [facility] Patient Portal Access Instructions: Stay connected with your healthcare team and access your personal medical information anytime with the [facility] Patient Portal. If you would like a full copy of your medical records please contact the [facility] Medical Records Department Monday through Monday between 8a.m. and 4:30p.m. Please follow the directions below to access the portal: 1.Access the email account you provided upon registration to the hospital.2.Look for an invitation email from [facility].3.Open the email and access the invitation link: Accept Invitation to [facility]4.Fill in the required carlson to create your account. Sign into www.Chumen Wenwen with your username and password that you created in the above steps to stay up to date. You can then view a summary of results, a summary of your visits, and the ability to download your summaries to your computer or send the information securely to a physician. Remember that your healthcare information is confidential, so carefully consider who you will allow to register on the [facility] Patient Portal for access to your information. You can also access the [facility] Patient Portal on the [employer]. Simply click on "Health Records" under "Health Data" and then click on the Pb logo. HOW TO SAFELY DISPOSE OF PRESCRIPTION MEDICATIONS Please use one of the following methods to safely dispose of your unused medications. 1.Use a drug disposal kit: the drug disposal pouch allows you to safely discard your old and unused drugs. Ask your nurse to give you one when you are discharged.2.Visit a local take-back location: Many local pharmacies and police departments have programs that collect old and unwanted prescription drugs. Call your local pharmacy or go to http://Inmobiliarie.Opzi/4W7Tk3l to find one close to you.3.Make use of household items: Use cat litter or old coffee grounds to dispose medications if other options are not available. Mix your drugs with these household products, seal them in an airtight container and throw it into the garbage. Call [facility]: [phone] to be sure your drugs can be disposed of in this way. Some medicines may require a different approach.4.Never flush your medications down the toilet. IF YOU HAVE BEEN PRESCRIBED AN OPIOIDS FOR PAIN If you have been prescribed an opioid (such as hydrocodone, oxycodone or morphine), it is critical to understand the possible side effects and risks of opioid pain medications. Even when taken as directed, opioids can have several side effects including: Tolerance, meaning you might need to take more of a medication for the same pain relief. Nausea, vomiting and/or constipation. Sleepiness, dizziness, dry mouth, confusion, depression or itching. Physical dependence, meaning you have withdrawal symptoms when a medication is stopped ? this can develop within a few days. KNOW YOUR RESPONSIBILITIES It is important to know exactly how much and how often to take the opioid pain medications you are prescribed. Never take opioids in higher amounts or more often than prescribed. Do not combine opioids with alcohol or other drugs that cause drowsiness, such as benzodiazepines, also known as benzos, including diazepam and alprazolam, muscle relaxants or sleep aids. Never sell or share prescription opioids. This is illegal. Store opioids in a secure place and out of reach of others (including children, family, friends and visitors). The last page(s) of this document has been signed and retained as a CHART COPY Signatures Patient Education Materials Vomiting (Adult) Medication Leaflets ondansetron (oral), ondansetron (oral) My discharge plan and instructions have been reviewed and explained to me and I,NEVILLE FOX understand my current condition and have read and understand these discharge instructions. I have received a written copy of the plan/instructions. If I have questions, I am aware that I should contact my doctor. Patient/Chromium Plater Signature: Date/Time: Relationship to Patient: Witness Name/Signature: Date/Time: [facility] 01-05-2024 Telephone encounter Note Spouse calls to request an appointment for patient. She reports that patient was seen at [facility] on 01/02/2024 for his his left eye and they removed two objects from the eye and also diagnosed him with shingles. She reports they put him on some medication for the shingles but wasn't sure what it was. She reports that since that ER visit patient has been unable to see out of eye, complaining of severe pain to the eye, vomiting, not eating or drinking, not getting out of bed, not able to keep medication down, and the eye is more swollen (size of a golf ball). Spouse is not on contact list to speak with but patient is unable to call as he is unable to see out of eye at all per spouse. General guidance given based on symptoms. Instructed spouse to take patient back to the ER as he sounds rather unstable in regards to vision, weakness, and hydration status. Spouse verbalizes understanding. Octavia Baker RN [facility] 01-05-2024 Miscellaneous Notes Spouse calls to request an appointment for patient. She reports that patient was seen at [facility] on 01/02/2024 for his his left eye and they removed two objects from the eye and also diagnosed him with shingles. She reports they put him on some medication for the shingles but wasn't sure what it was. She reports that since that ER visit patient has been unable to see out of eye, complaining of severe pain to the eye, vomiting, not eating or drinking, not getting out of bed, not able to keep medication down, and the eye is more swollen (size of a golf ball). Spouse is not on contact list to speak with but patient is unable to call as he is unable to see out of eye at all per spouse. General guidance given based on symptoms. Instructed spouse to take patient back to the ER as he sounds rather unstable in regards to vision, weakness, and hydration status. Spouse verbalizes understanding. Octavia Baker RN documented in this encounter [facility] 01-04-2024 Hospital Discharg e instructions Patient Education 01/04/2024 00:04:26 Shingles (Herpes Zoster) Shingles Shingles is a viral infection caused by the same virus that causes chicken pox. Anyone who has had chicken pox may get shingles later in life. The virus stays in the body, but remains asleep (dormant). Shingles often occurs in older persons or persons with lowered immunity. But it can affect anyone at any age. Shingles starts as a tingling patch of skin on one side of the body. Small, painful blisters may then appear. The rash rarely spreads to other parts of the body. Exposure to shingles can't cause shingles. However, it can cause chicken pox in anyone who has not had chicken pox or has not been vaccinated. The contagious period ends when all blisters have crusted over, generally 1 to 2 weeks after the illness starts. After the blisters heal, the affected skin may be sensitive or painful for weeks or months, gradually resolving over time. But, sometimes this can last longer and be permanent (called postherpetic neuralgia.) Shingles vaccines are available. Vaccination can help prevent shingles or make it less painful. It is generally recommended for adults older than 50, even if you've had singles in the past. Talk with your healthcare provider about when to get vaccinated and which vaccine is best for you. Home care Medicines may be prescribed to help relieve pain. Take these medicines as directed. Ask your healthcare provider or pharmacist before using lxug-vce-rggdoig medicines for helping treat pain and itching. In certain cases, antiviral medicines may be prescribed to reduce pain, shorten the illness, and prevent neuralgia. Take these medicines as directed. Compresses made from a solution of cool water mixed with cornstarch or baking soda may help relieve pain and itching. Gently wash skin daily with soap and water to help prevent infection. Be certain to rinse off all of the soap, which can be irritating. Trim fingernails and try not to scratch. Scratching the sores may leave scars. Stay home from work or school until all blisters have formed a crust and you are no longer contagious. Follow-up care Follow up with your healthcare provider, or as directed. When to seek medical advice Fever of 100.4 F (38 C) or higher, or as directed by your healthcare provider Affected skin is on the face or neck and any of the following occur: oHeadache oEye pain oChanges in vision oSores near the eye oWeakness of facial muscles Blisters occurring on new areas of the body Pain, redness, or swelling of a joint Signs of skin infection: colored drainage from the sores, warmth, increasing redness, fever, or increasing pain [id number] [employer]. [address] [place] [address]. All rights reserved. This information is not intended as a substitute for professional medical care. Always follow your healthcare professional's instructions. Follow Up Care 01/03/2024 23:51:20 With:Call Physician Referral Address:Unknown When:Within 1 Week(s) Comments:Follow-up as needed if symptoms are not improving.Use Tylenol, Advil or Aleve for pain and fever as needed.Use Mcfarland as prescribed for severe pain as needed.Use antiviral medicine (valacyclovir) as prescribed.Return to the ED if symptoms worsen. [facility] 01-04-2024 Note Discharge Instructions Thank you for allowing [facility] to assist you with your healthcare needs. The following is important discharge information regarding your hospital visit. Diagnosis from Today's Visit Herpes zoster What to Do Next Instructions from Your Care Team No qualifying data available. Post Acute Orders No qualifying data available. You Need to Schedule the Following Appointments Follow Up with Call Physician Referral When:In 1 week Additional Information: Follow-up as needed if symptoms are not improving. Use Tylenol, Advil or Aleve for pain and fever as needed. Use Mcfarland as prescribed for severe pain as needed. Use antiviral medicine (valacyclovir) as prescribed. Return to the ED if symptoms worsen. Allergies NKA Medications Please ask your primary doctor or pharmacist before taking any other medication not listed, including over the counter drugs, herbal medications, vitamins and or supplements as they may interact with your home medications. What How Much When Why Instructions Last Dose New acetaminophen-hydrocodone (Mcfarland 325- 5 mg oral tablet) 1 tab(s) by mouth Every 6 hours as needed for As needed for severe pain Herpes zoster Duration: 3 Days Printed Prescription New valACYclovir (valACYclovir 1 g oral tablet) 1 tab(s) by mouth Every 8 hours Duration: 7 Days Printed Prescription Unchanged buPROPion (Wellbutrin SR) by mouth Two (2) times a day Unchanged celecoxib (CeleBREX) by mouth Unchanged rosuvastatin (Crestor) by mouth Once a day Unchanged sertraline (Zoloft) by mouth Once a day Please take this list to your next doctor s visit. Bring all medications you take, including over the counter medications, herbals and other supplements with you to your doctor s visit. Patients and families are reminded to discard old lists and to update any records with all medication providers or retail pharmacies. Education Materials Shingles Shingles is a viral infection caused by the same virus that causes chicken pox. Anyone who has had chicken pox may get shingles later in life. The virus stays in the body, but remains asleep (dormant). Shingles often occurs in older persons or persons with lowered immunity. But it can affect anyone at any age. Shingles starts as a tingling patch of skin on one side of the body. Small, painful blisters may then appear. The rash rarely spreads to other parts of the body. Exposure to shingles can't cause shingles. However, it can cause chicken pox in anyone who has not had chicken pox or has not been vaccinated. The contagious period ends when all blisters have crusted over, generally 1 to 2 weeks after the illness starts. After the blisters heal, the affected skin may be sensitive or painful for weeks or months, gradually resolving over time. But, sometimes this can last longer and be permanent (called postherpetic neuralgia.) Shingles vaccines are available. Vaccination can help prevent shingles or make it less painful. It is generally recommended for adults older than 50, even if you've had singles in the past. Talk with your healthcare provider about when to get vaccinated and which vaccine is best for you. Home care Medicines may be prescribed to help relieve pain. Take these medicines as directed. Ask your healthcare provider or pharmacist before using nfhp-arw-labpyhx medicines for helping treat pain and itching. In certain cases, antiviral medicines may be prescribed to reduce pain, shorten the illness, and prevent neuralgia. Take these medicines as directed. Compresses made from a solution of cool water mixed with cornstarch or baking soda may help relieve pain and itching. Gently wash skin daily with soap and water to help prevent infection. Be certain to rinse off all of the soap, which can be irritating. Trim fingernails and try not to scratch. Scratching the sores may leave scars. Stay home from work or school until all blisters have formed a crust and you are no longer contagious. Follow-up care Follow up with your healthcare provider, or as directed. When to seek medical advice Fever of 100.4 F (38 C) or higher, or as directed by your healthcare provider Affected skin is on the face or neck and any of the following occur: oHeadache oEye pain oChanges in vision oSores near the eye oWeakness of facial muscles Blisters occurring on new areas of the body Pain, redness, or swelling of a joint Signs of skin infection: colored drainage from the sores, warmth, increasing redness, fever, or increasing pain [id number] [employer]. [address] [place] [address], [place] [address]. All rights reserved. This information is not intended as a substitute for professional medical care. Always follow your healthcare professional's instructions. Additional Information VACCINATE! IT SAVES LIVES! Members of the community who have not yet received the COVID-19 vaccine and would like to receive it can visit one of [facility] vaccine clinics. There are many vaccine clinic locations within the [facility]. For locations and available times, please visit [email or web address] [email or web address] It is important to note that some COVID mobile vaccine clinics are held outdoors and may be canceled in rainy or stormy conditions. To learn more about pediatric vaccinations (ages 5-11), we invite you to visit the [facility] webpage. https://www.[facility].org/p ages/7182-Nbdwl-Tdypirnmjvh-Freq xysnke-Ijnsz-Fjbzmgjeh.html To learn more about the COVID-19 vaccine, we invite you to visit the CDC website for a list of frequently asked questions. https://www.cdc.gov/coronavirus/ 2019-ncov/vaccines/faq.html [facility] Patient Portal Access Instructions: Stay connected with your healthcare team and access your personal medical information anytime with the [facility] Patient Portal. If you would like a full copy of your medical records please contact the [facility] Medical Records Department Monday through Monday between 8a.m. and 4:30p.m. Please follow the directions below to access the portal: 1.Access the email account you provided upon registration to the hospital.2.Look for an invitation email from [facility].3.Open the email and access the invitation link: Accept Invitation to [facility]4.Fill in the required carlson to create your account. Sign into www.Chumen Wenwen with your username and password that you created in the above steps to stay up to date. You can then view a summary of results, a summary of your visits, and the ability to download your summaries to your computer or send the information securely to a physician. Remember that your healthcare information is confidential, so carefully consider who you will allow to register on the [facility] Patient Portal for access to your information. You can also access the [facility] Patient Portal on the [employer]. Simply click on "Health Records" under "Health Data" and then click on the Pb logo. HOW TO SAFELY DISPOSE OF PRESCRIPTION MEDICATIONS Please use one of the following methods to safely dispose of your unused medications. 1.Use a drug disposal kit: the drug disposal pouch allows you to safely discard your old and unused drugs. Ask your nurse to give you one when you are discharged.2.Visit a local take-back location: Many local pharmacies and police departments have programs that collect old and unwanted prescription drugs. Call your local pharmacy or go to http://Inmobiliarie.Opzi/7S1Bg7z to find one close to you.3.Make use of household items: Use cat litter or old coffee grounds to dispose medications if other options are not available. Mix your drugs with these household products, seal them in an airtight container and throw it into the garbage. Call [facility]: [phone] to be sure your drugs can be disposed of in this way. Some medicines may require a different approach.4.Never flush your medications down the toilet. IF YOU HAVE BEEN PRESCRIBED AN OPIOIDS FOR PAIN If you have been prescribed an opioid (such as hydrocodone, oxycodone or morphine), it is critical to understand the possible side effects and risks of opioid pain medications. Even when taken as directed, opioids can have several side effects including: Tolerance, meaning you might need to take more of a medication for the same pain relief. Nausea, vomiting and/or constipation. Sleepiness, dizziness, dry mouth, confusion, depression or itching. Physical dependence, meaning you have withdrawal symptoms when a medication is stopped ? this can develop within a few days. KNOW YOUR RESPONSIBILITIES It is important to know exactly how much and how often to take the opioid pain medications you are prescribed. Never take opioids in higher amounts or more often than prescribed. Do not combine opioids with alcohol or other drugs that cause drowsiness, such as benzodiazepines, also known as benzos, including diazepam and alprazolam, muscle relaxants or sleep aids. Never sell or share prescription opioids. This is illegal. Store opioids in a secure place and out of reach of others (including children, family, friends and visitors). The last page(s) of this document has been signed and retained as a CHART COPY Signatures Patient Education Materials Shingles (Herpes Zoster) Medication Leaflets My discharge plan and instructions have been reviewed and explained to me and I,NEVILLE FOX understand my current condition and have read and understand these discharge instructions. I have received a written copy of the plan/instructions. If I have questions, I am aware that I should contact my doctor. Patient/Chromium Plater Signature: Date/Time: Relationship to Patient: Witness Name/Signature: Date/Time: [facility] 01-02-2024 Note HNO ID: [id number] Author: SAI BAUGH APRN.MEDICAID ANALYST Service: ? Author Type: Nurse Practitioner Type: Progress Notes Filed: 01/02/2024 11:08 Note Text: Patient came in with complaints of left eye pain. Patient says it has been 6 days and seems to be getting worse. Patient says he is not sure if he had gotten something in it. Patient says he does have blurred vision. Patient says the pain is an 8 out of 10. Patient says it wakes him up in the middle the night. At this time patient is being referred to the emergency room for evaluation. Patient was okay with this care plan. Patient wants to take himself. [facility] 01-02-2024 History of Presen t illness Narrative Patient came in with complaints of left eye pain. Patient says it has been 6 days and seems to be getting worse. Patient says he is not sure if he had gotten something in it. Patient says he does have blurred vision. Patient says the pain is an 8 out of 10. Patient says it wakes him up in the middle the night. At this time patient is being referred to the emergency room for evaluation. Patient was okay with this care plan. Patient wants to take himself. documented in this encounter [facility] 06-12-2023 Miscellaneous Notes The following approved medication requests have been transmitted electronically. Requested Prescriptions Pending Prescriptions Disp Refills buPROPion XL (WELLBUTRIN XL) 150 mg 24 hr tablet 30 tablet 11 Sig: Take 1 tablet by mouth once daily. celecoxib (CELEBREX) 200 mg capsule 90 capsule 3 Sig: Take 1 capsule by mouth once daily. rosuvastatin (CRESTOR) 10 mg tablet 30 tablet 11 Sig: Take 1 tablet by mouth daily at bedtime. sertraline (ZOLOFT) 100 mg tablet 60 tablet 11 Sig: Take 2 tablets by mouth once daily. Diaz Mar APRN.SHARATH Patient has been identified by name and date of : Yes, Provider Citlalli Chaney MD Date June 12, 2023 Time 8:50 AM Patient phones for refill(s): Requested Prescriptions Pending Prescriptions Disp Refills buPROPion XL (WELLBUTRIN XL) 150 mg 24 hr tablet 30 tablet 11 Sig: Take 1 tablet by mouth once daily. celecoxib (CELEBREX) 200 mg capsule 90 capsule 3 Sig: Take 1 capsule by mouth once daily. rosuvastatin (CRESTOR) 10 mg tablet 30 tablet 11 Sig: Take 1 tablet by mouth daily at bedtime. sertraline (ZOLOFT) 100 mg tablet 60 tablet 11 Sig: Take 2 tablets by mouth once daily. Date of last office visit in primary care: 08/17/2022 Date of next office visit in primary care: none Please advise. Thank you. Penelope Mccann Ma. documented in this encounter [facility] 12-22-2022 History of Presen t illness Narrative Denys Davison MD Department of Orthopaedics Orthopaedics [address] [facility] [address] Dept: [phone] Dept December 22, 2022 CHIEF COMPLAINT: Post Op of the Right Wrist (6 weeks 6 days post op excision volar lipoma R wrist R CTR and Injection ). HPI Patient presents with: Right Wrist - Post Op: 6 weeks 6 days post op excision volar lipoma R wrist R CTR and Injection Patient reports pain only with pressure on the surgical scar. He takes celebrex daily for knee pain. ASSESSMENT: D17.21 Lipoma of right upper extremity (primary encounter diagnosis) G56.01 Carpal tunnel syndrome on right SUMMARY/PLAN: Doing quite well. Feels like his party host is almost 100%. No numbness or tingling. Just a bit sore at both incision still, appropriate for 7 weeks. Continue activities as tolerated and follow-up as needed. Exam: As above Supporting Information Below: Medications: Current Outpatient Medications Medication Sig buPROPion XL (WELLBUTRIN XL) 150 mg 24 hr tablet Take 1 tablet by mouth once daily. celecoxib (CELEBREX) 200 mg capsule Take 1 capsule by mouth once daily. rosuvastatin (CRESTOR) 10 mg tablet Take 1 tablet by mouth daily at bedtime. sertraline (ZOLOFT) 100 mg tablet Take 2 tablets by mouth once daily. No current facility-administered medications for this visit. Allergies: Patient has no known allergies. Denys Davison MD documented in this encounter [facility] 10-21-2022 History and physical note HISTORY AND PHYSICAL EXAMINATION SERVICE DATE: 10/21/2022 SERVICE TIME: 1:28 PM PRIMARY CARE PHYSICIAN: Citlalli Chaney MD REASON FOR VISIT: Neville Fox is a 47 year old male who is scheduled for Procedure(s): EXCISION GANGLION WRIST (Right) DECOMPRESSION NERVE MEDIAN CARPAL TUNNEL (Right) INJECT THERAPEUTIC CARPAL TUNNEL (Right) at the request of Dr. Denys Davison for consultation. My final recommendation will be communicated back to the requesting physician by way of shared medical record or letter. Subjective The patient has the following: ACTIVE PROBLEM LIST Derangement of Meniscus, Not Elsewhere Classified Adjustment Disorder With Anxious Mood Family Hx of Colon Cancer Right Knee Meniscal Tear Right Shoulder Pain Numbness and Tingling of Right Arm Tear of Meniscus of Left Knee Knee Pain Genu Varum (Acquired) Lipidemia Bilateral Low Back Pain With Sciatica Marijuana Abuse Smoker COVID-19 Immunization Status COVID-19 VACCINE (Series Information) Completed 03/20/2022 Imm Admin: COVID-19 vaccine, age 12+ yr, bivalent (MODERNA) 06/05/2021 Imm Admin: COVID-19 original vaccine, full dose, monovalent (MODERNA) 10/06/2020 Imm Admin: COVID-19 original vaccine, full dose, monovalent (MODERNA) Only the first 3 history entries have been loaded, but more history exists. CHIEF COMPLAINT: Pre-op exam HPI: Neville Fox is a 47 year old seen for PAC due to scheduled above surgery because of lipoma/CTS. REVIEW OF SYSTEMS: General: No weight loss, malaise or fevers. Neurological: No history of TIA's, stroke, PATENT LEGAL ASSISTANT tumor, impaired sensorium, hemiplegia, paraplegia or quadraplegia. No neurological symptoms or problems. Respiratory: Positive for: asthma (hx childhood) and tobacco use. Negative for: COPD, pneumonia within 6 weeks, URI < 2 weeks and obstructive sleep apnea. Cardiovascular: Positive for: hyperlipidemia (on rx) Negative for: anticoagulation therapy, arrhythmia, atrial fibrillation, CAD, chest pain, CHF, congenital heart defect, DVT/PE, hypertension, recent NC, murmur/valvular heart disease, PTCA, open heart surgery and valve surgery. GI: No history of GI symptoms or problems. No history of esophageal varices, recent ascites, or ETOH greater than 2 drinks per day. : No history of dysuria, frequency or incontinence, stones or chronic kidney disease. No difficulty urinating, nocturia > 1 time per night or hematuria. Endocrine: No history of diabetes. Has not taken steroids within the past 30 days. No history of endocrinological symptoms or problems. Hematology: No history of bleeding or clotting disorder. Patient is not taking anti-coagulation or platelet medications. No history of hematological symptoms or problems. Oncology: No history of CA metastasis, chemo within 30 days, or radiotherapy within 90 days. No history of oncological symptoms or problems. Psych: Positive for: anxiety and depression. Musculoskeletal: See HPI. +right meniscus Skin: Negative for lesions, rash and itching. PAST MEDICAL HISTORY Diagnosis Date Arthritis Internal derangement of knee Unspecified otitis media Recurrent otitis PAST SURGICAL HISTORY Procedure Laterality Date ARTHROSCOPY KNEE DIAGNOSTIC W/WO SYNOVIAL BX SPX between high school and summer 2008 most recent Arthroscopy, knee, x5 right knee, COLONOSCOPY 07/14/2021 repeat in 10 years FAMILY HISTORY Problem Relation Age of Onset Colon Cancer Mother age 61 Hyperlipidemia Mother Hypertension Paternal Grandmother Diabetes Paternal Grandmother Heart Sister Social History Tobacco Use Smoking status: Every Day Packs/day: 0.50 Years: 15.00 Pack years: 7.50 Types: Cigarettes Smokeless tobacco: Never Tobacco comments: 10-12 cigs per day Vaping Use Vaping Use: Never used Substance Use Topics Alcohol use: Yes Comment: very seldom Drug use: Yes Frequency: 7.0 times per week Types: Marijuana Comment: + marijuana tox. Daily Prior to Admission medications as of 10/21/22 1602 Medication Sig Last Dose Taking buPROPion XL (WELLBUTRIN XL) 150 mg 24 hr tablet Take 1 tablet by mouth once daily. Taking Yes celecoxib (CELEBREX) 200 mg capsule Take 1 capsule by mouth once daily. Taking Yes rosuvastatin (CRESTOR) 10 mg tablet Take 1 tablet by mouth daily at bedtime. Taking Yes sertraline (ZOLOFT) 100 mg tablet Take 2 tablets by mouth once daily. Taking Yes No medication comments found. ALLERGIES No Known Allergies Objective PHYSICAL EXAM: General: alert and oriented (x3) and healthy appearance. Pertinent negatives noted - not distressed. Skin: normal color, no rash or lesions. HEENT: EOM intact and pupils equal round. Pertinent negatives noted - no carotid bruit. Cardiovascular: regular rate and rhythm, normal S1 and S2, no rub, murmurs, or gallop. Respiratory: normal breath sounds, no wheezes or crackles. No chest wall deformity or tenderness. Abdomen: soft. Pertinent negatives noted - not tender. Extremities: no deformity, no edema or tenderness, no joint swelling or clubbing. Neurological: normal cognition and motor skills. Gait normal. No weakness or sensory deficit. PAIN ASSESSMENT: Pain Pain Level: 6 Pain Location: Wrist-Right Description: Sharp Duration Amount of Time: 1 Duration Units: Years Frequency: Continuous VITALS: BP 116/74 Pulse 70 Temp (Src) 97.7 (Temporal) Resp 16 Ht 5' 10" (1.78m) Wt 188 lb (85.3kg) SpO2 95% BMI 26.98 kg/(m^2). Diagnostic tests reviewed for today's visit: Lab Value Units Date High Low HB 16.8 g/dL 06/24/2022 17.0 13.0 HCT 51.0 % 06/24/2022 51.0 39.0 WBC 14.14 k/uL 06/24/2022 11.00 3.70 PLT 353 k/uL 06/24/2022 400 150 NA 140 mmol/L 06/24/2022 144 136 K 4.5 mmol/L 06/24/2022 5.1 3.7 GLUC 95 mg/dL 06/24/2022 99 74 BUN 17 mg/dL 06/24/2022 24 9 CREAT 1.10 mg/dL 06/24/2022 1.22 0.73 PTSEC No results within date range. INR No results within date range. APTT No results within date range. ALT 23 U/L 06/24/2022 54 10 AST 23 U/L 06/24/2022 40 14 TBILI 0.2 mg/dL 06/24/2022 1.3 0.2 TSH 3.800 mIU/L 06/24/2022 4.200 0.270 Lab Value Units Date High Low HCGQT No results within date range. UHCG No results within date range. HCG, BODY* No results within date range. Lab Value Units Date High Low ABORHD No results within date range. ABSCREEN No results within date range. No results found for: HBA1C No results found for this or any previous visit (from the past 8760 hour(s)). No results found for this or any previous visit (from the past 21543 hour(s)). Assessment Patient has the following medical conditions which may affect eliud-operative course: Adjustment Disorder with Anxious Mood Assessment: stable on rx per pt Marijuana abuse Assessment: daily, instructed to withhold prior to surgery, pt verbalized understanding. Lipidemia Assessment: c/w statin Smoker Assessment: 0.5ppd/15 years, denies asthma or COPD Georges Activity Status Index: METS: Climb a flight of stairs or walk up a hill (5.50 METs) DASI Score: 5.5 Patient denies any chest pain or undue shortness of breath with the above physical activity. Clinical Frailty Scale: 2. Well STOP-Bang Score: Male patient Denies snoring loudly Denies feeling tired, fatigued, or sleepy during the daytime Has not been observed to stop breathing or choking/gasping during sleep Denies having high blood pressure BMI less than or equal to 35 kg/m^2 Patient 50 years old or younger Does not have a large neck STOP-Bang Score: 1 [id number] Score: Age: <65 Sex: male CHF history: No Hypertension history: No Stroke/TIA/thromboembolism history: No Vascular disease history: No Diabetes history: No [id number] Score: 0 ARISCAT Score: Age: <=50 Preoperative SpO2: 91-95% Respiratory infection in the last month: No Preoperative anemia: Yes Surgical incision: peripheral Duration of surgery: <2 hrs Emergency procedure: No ARISCAT Score: 19 ASA Class: 2 ANESTHESIA FINDINGS: Intubation History: No history of difficult intubation Significant Anesthesia Considerations: none Airway History: No history of difficult airway I - PHYSICAL EVALUATION AIRWAY Patient intubated: No. Tracheostomy tube not present Mallampati: II. TM distance: >3 FB. Neck ROM: full ROM without neurological symptoms. Mouth opening: adequate. Short neck: no. Thick neck: no Salter present: yes Lip Bite Test: I Microretrognathia/Micronagthia/R ecessed Chin: No DENTAL Dental findings: teeth intact. II - ANESTHESIA PLAN ASA Score: 2 Anesthetic Plan: other Anesthetic plan additional comments: *PACC/TCI - anesthesia choice. Beta Kristina Monitoring Plan Post Procedure Analgesic Plan Informed Consent Anesthetic risks, benefits, alternatives, personnel and consent discussed: yes. Patient / Responsible Alliance Party agrees to proceed: yes Patient / Surrogate agrees to blood products: blood products not planned Discussed the possibility of lip / dental damage: yes Prepared for Surgery: optimally prepared for surgery. CONSULTS: Patient does not require consults for optimization at this time Planned Anesthetic: other anesthesia choice The Following Tests/Procedures Have Been Initiated: No orders of the defined types were placed in this encounter. Instructions Given to Patient: Instructions located in the after visit summary. Patient given verbal and written preop instructions and voices comprehension and compliance. SIGNATURE: Nan Campos APRN.CNP PATIENT NAME: Neville Fox DATE: October 21, 2022 TIME: 4:02 PM PAGER/CONTACT #: documented in this encounter [facility] 10-21-2022 Instructions Nan Campos APRN.CNP - 10/21/2022 4:02 PM EDT PATIENT PREOPERATIVE INSTRUCTIONS Denys Davison MD has scheduled you for your procedure at this surgery center: [facility]: [phone] -- [address] [facility] [facility] [address]. Please read below carefully for your personalized instructions. Dietary Restrictions: - No solid food after midnight. - You may have 12 ounces of clear liquids (water, clear juices such as apple juice or gatorade, carbonated beverages, clear tea, black coffee, jello) until 2 hours before scheduled arrival at facility. No red/purple coloring and no creamer/sugar Medications: Unless instructed differently below, stay on all of your medications until your surgery. Approved medications to take the morning of surgery with a sip of water: buPROPion (WELLBUTRIN), rosuvastatin, sertraline (ZOLOFT) If you take any medications for erectile dysfunction-Cialis (Tadalafil), Levitra, Staxyn (Vardenafil) Viagra (Sildenenafil please do not take these for 48 hours before surgery. If you start any new medications after today's visit, please contact the surgeon's office. Blood Thinning Medications: - Stop NSAIDS (Ibuprofen, Advil, Aleve, Motrin, Celebrex, Mobic, etc.) 7 days before surgery, as directed by your surgeon. - Stop Aspirin 7 days before surgery, as directed by your surgeon. - Stop Vitamin E, ALL multi-vitamins, herbals and dietary supplements 7 days before surgery. - You may take Tylenol (Acetaminophen) or any of your pain medications that do not contain aspirin or NSAIDS as needed. Important Reminders: - Candy, mints, and tobacco products are NOT permitted the morning of surgery. - Hearing aids, dentures and glasses may be worn the morning of surgery. - NO jewelry, body piercings, makeup, hairpins or contacts are to be worn the day of surgery. If you develop symptoms such as a fever, cold, or flu, or have other changes to your health within TWO DAYS of scheduled surgery or the morning of surgery, please contact the surgery center above. Personal Belongings: -Please have photo ID and insurance cards. -If you do not have a copy of advance directives on file with us, please bring a copy with you on the day of surgery. - Leave ALL valuables and money at home or with family members. For Outpatient Procedures: - YOU MUST HAVE A RESPONSIBLE BREAKFAST SUPERVISOR TAKE YOU HOME. A PSYCHIATRIC AIDE OR CHEMISTRY INTERN CANNOT BE MADE A RESPONSIBLE BREAKFAST SUPERVISOR. - We recommend that a responsible person stays with you overnight to take care of you. - You cannot stay in a hotel alone after outpatient surgery. You will not be permitted to have your surgery, if you do not have someone to take care of you. Arrival Time for Surgery: - The Surgery Center or hospital where you are having surgery will call the afternoon before surgery (or Monday for Monday surgery) with a scheduled arrival time. - If you have not heard by 4 pm, please contact the surgery center above. Please be aware that emergency situations arise, which may delay or change your surgical time. If this happens, we will notify you as soon as possible and regret any inconvenience. If you already have an Advance Directive, please fax a copy to [phone] or email to for it to be added to your chart. If you do not have an Advance Directive, you can find the appropriate form and more information at [email or web address]. We recommend that you complete the Advance Directive form found on the website and bring it with you the day of your surgery. It can be witnessed and scanned into your chart that day. Nan Campos APRN.SHARATH documented in this encounter [facility] 08-17-2022 Instructions Glory Torres APRN.CNP - 08/17/2022 7:49 AM EDT Start antibiotic take as directed Continue with supportive care at home. Stay well hydrated May continue with over the counter cold and cough medication as needed. May use ibuprofen 600-800 mg every 6-8 hours as needed pain. Follow up as needed. documented in this encounter [facility] 08-17-2022 History of Presen t illness Narrative This is a 47 year old male who presents today with: Patient presents with: Acute Visit: right ear infection HISTORY OF PRESENT ILLNESS: Neville Fox is a 47 year old male. Patient presents with: Acute Visit: right ear infection Here in the office for right ear pain. Cough and runny nose started 1 week ago. Ear pain started about 3 days ago. Has been using OTC cold and cough medications which are mildly helpful. No fever or chills. PAST MEDICAL HISTORY: PAST MEDICAL HISTORY Diagnosis Date Arthritis Internal derangement of knee Unspecified otitis media Recurrent otitis PAST SURGICAL HISTORY Procedure Laterality Date ARTHROSCOPY KNEE DIAGNOSTIC W/WO SYNOVIAL BX SPX between high school and summer 2008 most recent Arthroscopy, knee, x5 right knee, COLONOSCOPY 07/14/2021 repeat in 10 years ALLERGIES Patient has no known allergies. MEDICATIONS Current Outpatient Medications Medication Sig buPROPion XL (WELLBUTRIN XL) 150 mg 24 hr tablet Take 1 tablet by mouth once daily. celecoxib (CELEBREX) 200 mg capsule Take 1 capsule by mouth once daily. rosuvastatin (CRESTOR) 10 mg tablet Take 1 tablet by mouth daily at bedtime. sertraline (ZOLOFT) 100 mg tablet Take 2 tablets by mouth once daily. No current facility-administered medications for this visit. FAMILY HISTORY Problem Relation Age of Onset Colon Cancer Mother age 61 Hyperlipidemia Mother Hypertension Paternal Grandmother Diabetes Paternal Grandmother Heart Sister Social History Tobacco Use Smoking status: Every Day Packs/day: 0.50 Years: 15.00 Pack years: 7.50 Types: Cigarettes Last attempt to quit: 01/16/2017 Years since quittin.5 Smokeless tobacco: Never Tobacco comments: 10 cigs per day Vaping Use Vaping Use: Never used Substance Use Topics Alcohol use: Yes Comment: very seldom Drug use: Yes Frequency: 7.0 times per week Types: Marijuana Comment: + marijuana tox. Daily REVIEW OF SYSTEMS GENERAL: No weight loss, malaise or fevers/chills HEENT: + Ear Pain, rhinorrhea NECK: Negative for lumps, goiter, pain and significant neck swelling RESPIRATORY: Negative for cough, hemoptysis, wheezing, dyspnea or shortness of breath CARDIOVASCULAR: Negative for chest pain, leg swelling, orthopnea, or palpitations GI: No nausea, vomiting, or diarrhea/constipation. No hematochezia/melena. No heartburn or reflux symptoms. : No history of dysuria, frequency or incontinence MUSCULOSKELETAL: Negative for joint pain or swelling. SKIN: Negative for lesions, rash, and itching ENDOCRINE: Negative for cold or heat intolerance, polyuria, polydipsia and goiter NEURO: No history of headaches, syncope, paralysis, seizures or tremors MOOD: Negative for depression, anxiety, or suicidal ideation. EXAM: BP 124/78 Pulse (P) 71 Temp 36.9 C (98.4 F) (Left Tympanic) Resp (P) 16 Wt (P) 85.7 kg (189 lb) SpO2 (P) 97% BMI (P) 27.91 kg/m PHYSICAL EXAM: General Appearance: Well appearing, alert, in no acute distress, well-hydrated, well nourished. Skin: Skin color, texture, turgor normal, no suspicious rashes or lesions. Head: Normocephalic, no masses, lesions, tenderness or abnormalities. Eyes: Anicteric sclera. Pupils are equally round and reactive to light. Extraocular movements are intact. Ears: External ears normal, canals clear, Positive findings: R TM: erythematous and bulging. Tenderness noted when pulling the pinna back. left TM pearly avila Nose/Sinuses: Nares normal, septum midline, mucosa normal, no drainage or sinus tenderness. Oropharynx: Lips, mucosa, and tongue normal, teeth and gums normal, oropharynx normal. Neck: Supple, no adenopathy; thyroid symmetric, normal size, no bruits. Lungs: Lungs clear to auscultation. No wheezing, rhonchi, rales. Heart: RRR without murmur, gallop, or rubs. No ectopy. Extremities: No deformities, edema, skin discoloration, clubbing or cyanosis. Good capillary refill. Peripheral Pulses: Normal, Capillary refill <2secs, strong peripheral pulses, Pulses palpable. Neurologic: Gait normal. Sensation grossly intact. ASSESSMENT/PLAN: 1. Non-recurrent acute suppurative otitis media of right ear without spontaneous rupture of tympanic membrane - ICD9: 382.00, ICD10: H66.001 - Will begin treatment with Augmentin 875 mg PO BID for 10 days - Supportive care with plenty of fluids, rest, and analgesia prn. - AMOXICILLIN 875 MG-POTASSIUM CLAVULANATE 125 MG TABLET Follow-up as needed or sooner if symptoms get worse or do not improve. Discussed treatment plan and patient voices understanding. Patient's questions answered appropriately. Medications and potential side effects were discussed and patient voices understanding. Glory Torres APRN.CNP This note was partially generated using Welcu voice recognition system. Note was reviewed for accuracy. There may be minor misspellings or grammar miscues with Dragon voice recognition. documented in this encounter [facility] 08-04-2022 Miscellaneous Notes Surgery has been scheduled as requested. Surgical request completed for right wrist volar lipoma, right CTR and right wrist injection at [facility] on 11/04/2022. Date chosen specifically by patient. Post op appointments have been scheduled and mailed to patient. documented in this encounter [facility] 07-14-2022 History of Presen t illness Narrative Denys Davison MD Department of Orthopaedics Orthopaedics [address] [place] [id number] Dept: [phone] Dept July 14, 2022 CHIEF COMPLAINT: Established Patient and Results - Mri of the Right Wrist HPI Patient here today for MRI results of the right wrist. States he continues with daily pain. ASSESSMENT: G56.01 Carpal tunnel syndrome of right wrist (primary encounter diagnosis) D17.21 Lipoma of right upper extremity M25.431 Effusion of right wrist PLAN: Excision volar lipoma, carpal tunnel release, and DRUJ injection. Mr. Neville Fox was advised as to contrast therapies and/or to take analgesics/anti-inflammatories as needed and all contraindications were reviewed. OBJECTIVE: Mr. Neville Fox is a pleasant 47 year old in no apparent distress. Gen:There were no vitals taken for this visit. nl development, non obese, no deformities ENT: Normocephalic, normal hearing, moist mucosa CV: Pulses:Radial= 2+ and symmetric, capillary refill < 2 secs, no peripheral edema/varicosities Skin: no rash, bruising or lesions. Good turgor. Psych: cooperative and appropriate, alert and oriented x 3, good mood and affect. Musculoskeletal: So he still has a obvious area of focal swelling that is consistent with the lipoma found on MRI. He still though has a Tinel's and median nerve compression test despite normal nerve testing. Furthermore, there does appear to be some discomfort on the dorsal side of his DRUJ and that is coinciding with some of the effusion seen on his MRI. Thus, we reviewed all of these issues and the risks, benefits, alternatives and potential complications involving both operative and nonoperative care. He would like to proceed with a lipoma excision and will do his carpal tunnel. In addition, while he is under anesthesia, I will inject his DRUJ. Imaging: IMPRESSION: LIPOMA ALONG THE PALMAR ASPECT OF THE WRIST DESCRIBED Political Scientist: GABI Transcribe Date/Time: Jul 12 2022 8:40A Dictated by : BRENDAN MONREAL MD This examination was interpreted and the report reviewed and electronically signed by: BRENDAN MONREAL MD on Jul 12 2022 8:46AM EST Results-Findings * * *Final Report* * * DATE OF EXAM: Jul 12 2022 8:16AM [facility] 0266 - MRI WRIST WO IVCON RT / PROCEDURE REASON: multiple diagnoses * * * * Physician Interpretation * * * * History: . Wrist lump, right Carpal tunnel syndrome of right wrist . Technique: Routine MRI of the wrist, right side; Comparison: None Result: A marker has been placed along the palmar aspect of the wrist at the level of the proximal carpal row. Within the subcutaneous fat at this level, there is a mass that follows fat signal intensity on all pulse sequences that measures 25 mm medial to lateral, 3 mm anterior to posterior and 23 mm proximal to distal. This lies immediately superficial to the flexor digitorum musculature and abuts and extends deep to the ulnar neurovascular bundle. Bone Marrow: There is no evidence of fracture, bone bruise or osteonecrosis. Ligaments: The scapholunate ligament and lunotriquetral ligament appear to be intact. Triangular Fibrocartilage: The triangular fibrocartilage appears to be intact. Cartilage: The articular cartilage of the radiocarpal and intercarpal joints is preserved. Tendons: The flexor and extensor tendons are intact. Nerves: The visualized portions of the median and ulnar nerves appear to be within normal limits. Abutment of the ulnar nerve by the lipoma described above. Joint Fluid and Synovium: Small effusion of the distal radioulnar joint. OTHER: No other significant abnormality identified. Supporting Subjective Information Below: Past Surgical History: PAST SURGICAL HISTORY Procedure Laterality Date ARTHROSCOPY KNEE DIAGNOSTIC W/WO SYNOVIAL BX SPX between high school and summer 2008 most recent Arthroscopy, knee, x5 right knee, COLONOSCOPY 07/14/2021 repeat in 10 years Medications: Current Outpatient Medications Medication Sig buPROPion XL (WELLBUTRIN XL) 150 mg 24 hr tablet Take 1 tablet by mouth once daily. celecoxib (CELEBREX) 200 mg capsule Take 1 capsule by mouth once daily. rosuvastatin (CRESTOR) 10 mg tablet Take 1 tablet by mouth daily at bedtime. sertraline (ZOLOFT) 100 mg tablet Take 2 tablets by mouth once daily. No current facility-administered medications for this visit. Allergies: Patient has no known allergies. ROS: General (negative for fatigue, malaise, weight loss/gain) HEENT (negative for headache, earache, recent vision changes, sinus pain, sore throat) Respiratory (no recent shortness of breath, hemoptysis) CV (negative for chest tightness, palpitations) Musculoskeletal (see HPI) Psych (no depression, anxiety) Denys Davison MD documented in this encounter [facility] 07-12-2022 History of Presen t illness Narrative Radiology Service Progress Note PATIENT NAME: Neville Fox DATE OF SERVICE: July 12, 2022 TIME: 7:52 AM PATIENT IDENTITY VERIFICATION COMPLETED USING TWO (2) IDENTIFIERS: Name and Date of confirmed by patient verbally. FALL SCREENING: Has the patient had 2 falls in the last year or 1 fall with injury or currently using an Ambulatory Assistive Device (Walker, Cane, Wheelchair, Crutches, etc.)? No PATIENT GENDER DATA: Male PATIENT RELEVANT IMPLANT DATA REVIEWED: Yes RADIOLOGY DEPARTMENT: MR; Exam(s) Completed: Upper MSK: Wrist, right PERIPHERAL IV DATA: Not applicable SIGNED BY: RT Alfredito(R) July 12, 2022 7:52 AM documented in this encounter [facility] 06-13-2022 History of Presen t illness Narrative Denys Davison MD Department of Orthopaedics Orthopaedics [address] [facility] [address] Dept: [phone] Dept June 13, 2022 CHIEF COMPLAINT: Follow Up of the Left Wrist, Follow Up of the Right Wrist, and EMG/NCV results HPI Patient here to discuss EMG/NCV results BUE. Patient states he is continuing to discomfort in his right wrist. Taking no med's for the pain. ASSESSMENT: R22.31 Wrist lump, right (primary encounter diagnosis) G56.01 Carpal tunnel syndrome of right wrist PLAN: Within normal nerve test and some persistent swelling in the wrist along with symptoms causing him functional issues, my recommendation is for an MRI of the wrist. Mr. Neville Fox was advised as to contrast therapies and/or to take analgesics/anti-inflammatories as needed and all contraindications were reviewed. OBJECTIVE: Mr. Neville Fox is a pleasant 47 year old in no apparent distress. Gen:There were no vitals taken for this visit. nl development, non obese, no deformities ENT: Normocephalic, normal hearing, moist mucosa CV: Pulses:Radial= 2+ and symmetric, capillary refill < 2 secs, no peripheral edema/varicosities Skin: no rash, bruising or lesions. Good turgor. Psych: cooperative and appropriate, alert and oriented x 3, good mood and affect. Musculoskeletal: Exam remains consistent with prior visit with some mild swelling over the volar surface of the flexor tendons. Persistent Tinel's and median nerve compression test at the wrist. Imaging: Nerve testing from an outside facility shows a normal exam. Supporting Subjective Information Below: Past Surgical History: PAST SURGICAL HISTORY Procedure Laterality Date ARTHROSCOPY KNEE DIAGNOSTIC W/WO SYNOVIAL BX SPX between high school and summer 2008 most recent Arthroscopy, knee, x5 right knee, COLONOSCOPY 07/14/2021 repeat in 10 years Medications: Current Outpatient Medications Medication Sig buPROPion XL (WELLBUTRIN XL) 150 mg 24 hr tablet Take 1 tablet by mouth once daily. celecoxib (CELEBREX) 200 mg capsule Take 1 capsule by mouth once daily. rosuvastatin (CRESTOR) 10 mg tablet Take 1 tablet by mouth daily at bedtime. sertraline (ZOLOFT) 100 mg tablet Take 2 tablets by mouth once daily. No current facility-administered medications for this visit. Allergies: Patient has no known allergies. ROS: General (negative for fatigue, malaise, weight loss/gain) HEENT (negative for headache, earache, recent vision changes, sinus pain, sore throat) Respiratory (no recent shortness of breath, hemoptysis) CV (negative for chest tightness, palpitations) Musculoskeletal (see HPI) Psych (no depression, anxiety) Denys Davison MD documented in this encounter [facility] 06-10-2022 History of Presen t illness Narrative Chief Complaint Patient presents with: Medication Follow-up HPI Neville Fox is a 47 year old male who presents here today for medication follow up. Depression/CHRIS: Overall stable with Wellbutrin 150 mg daily and Zoloft 100 mg 2 pills once daily. Pt states he's not really depressed this is more for his anger issue. Is not doing any counseling. Lipid: Admits his diet could improve. Denies any formal exercise other then work and chasing after kids. Taking Crestor 10 mg daily, tolerating well, no myalgia or gi upset. Pain: Chronic both knees but R>L; taking Celebrex 200 mg once daily. Stable with use of medication. Wrist: Wanted to discuss lump on right wrist since November. Was previously seen by Glory who referred him to Ortho. Pt has had cortisone injection and EMG completed. Scheduled for follow up with Ortho next week. Pain described as aching. 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 Has questions if medication could cause balance issues. He reports feeling off balance or vertigo type symptoms. Will momentarily lose his balance at times when he reaches out for something. Past medical history, appointments, medications, allergies reviewed. Previous Medical History PAST MEDICAL HISTORY Diagnosis Date Arthritis Internal derangement of knee Unspecified otitis media Recurrent otitis Previous Surgical History PAST SURGICAL HISTORY Procedure Laterality Date ARTHROSCOPY KNEE DIAGNOSTIC W/WO SYNOVIAL BX SPX between high school and summer 2008 most recent Arthroscopy, knee, x5 right knee, COLONOSCOPY 07/14/2021 repeat in 10 years Family History FAMILY HISTORY Problem Relation Age of Onset Colon Cancer Mother age 61 Hyperlipidemia Mother Hypertension Paternal Grandmother Diabetes Paternal Grandmother Heart Sister Patient Allergies ALLERGIES No Known Allergies Current Medications Current Outpatient Medications on File Prior to Visit Medication Sig buPROPion XL (WELLBUTRIN XL) 150 mg 24 hr tablet Take 1 tablet by mouth once daily. rosuvastatin (CRESTOR) 10 mg tablet Take 1 tablet by mouth daily at bedtime. sertraline (ZOLOFT) 100 mg tablet Take 2 tablets by mouth once daily. celecoxib (CELEBREX) 200 mg capsule Take 1 capsule by mouth once daily. No current facility-administered medications on file prior to visit. Social History Social History Tobacco Use Smoking status: Every Day Packs/day: 0.50 Years: 15.00 Pack years: 7.50 Types: Cigarettes Last attempt to quit: 01/16/2017 Years since quittin.4 Smokeless tobacco: Never Tobacco comments: 10 cigs per day Vaping Use Vaping Use: Never used Substance Use Topics Alcohol use: Yes Comment: very seldom Drug use: Yes Frequency: 7.0 times per week Types: Marijuana Comment: + marijuana tox. Daily EXAM: BP 136/82 (BP Site: Left Arm, BP Position: Sitting, BP Cuff Size: Regular Adult) Pulse 68 Resp 16 Wt 85.5 kg (188 lb 6.4 oz) BMI 27.82 kg/m General Appearance: Well appearing, alert, in no acute distress, well-hydrated, well nourished.. Lungs: Lungs clear to auscultation. No wheezing, rhonchi, rales.. Heart: RRR without murmur, gallop, or rubs. No ectopy. Left wrist: soft bulge dorsal ulnar aspect. Health Maintenance List HEPATITIS B(1 of 3 - 3-dose series) Never done PNEUMOCOCCAL(1 - PCV) Never done HEPATITIS C SCREENING Never done HIV SCREENING Never done INFLUENZA(1) due on 01/06/2022 DEPRESSION ASSESSMENT Never done DIABETES SCREEN due on 09/06/2023 LIPID SCREEN due on 09/05/2025 DTAP,TDAP,TD(3 - Td or Tdap) due on 01/30/2027 COLORECTAL CANCER SCREENING due on 07/15/2031 COVID-19 VACCINE Completed Data reviewed none ASSESSMENT/PLAN: 1. Adjustment disorder with anxious mood - ICD9: 309.24, ICD10: F43.22 (primary diagnosis) Continue current medications. - BUPROPION XL 150 MG TAB - SERTRALINE 100 MG TABLET 2. Chronic pain of right knee - ICD9: 719.46, 338.29, ICD10: M25.561, G89.29 Continue current medications. - CELECOXIB 200 MG CAPSULE 3. Hyperlipidemia, unspecified hyperlipidemia type - ICD9: 272.4, ICD10: E78.5 - ROSUVASTATIN 10 MG TABLET 4. Mass of joint of right wrist - ICD9: 719.63, ICD10: M25.831 Follow with Ortho 5. Balance issue Check labs; notify of results Follow up in 6 months Medical Decision Making: Problems: Moderate: 2+ stable chronic illnesses and New problem with uncertain prognosis Data: Unique test(s) ordered: 3+ Risk: Moderate: Drug management Medical Decision Making Level: 4 - Moderate Citlalli Chaney MD documented in this encounter [facility] 06-08-2022 Miscellaneous Notes Patient has been contacted and scheduled for 06/13/2022. Schedule OV f/u Patient had testing completed at [facility]. Results can be found under scanned documents. documented in this encounter [facility] 05-25-2022 Procedure note [facility] 04-04-2022 History of Presen t illness Narrative Associated Order(s): Additional Injections: R carpal tunnel Post-Procedure Diagnose(s): Carpal tunnel syndrome of right wrist Patient presents with: Right Wrist - New, Tumor/Mass Denys Davison MD Department of Orthopaedics Orthopaedics [address] [place] [address] Dept: [phone] Dept April 04, 2022 CHIEF COMPLAINT: New and Tumor/Mass of the Right Wrist HPI Pt with lump on the right wrist making grasping difficult. Pt is right hand dominant AMB ROOMING INTAKE FLOWSHEET DATA Risk Screening Do you have concerns about personal safety or safety in the home?: No Pain Pain Level: 6 Pain Location: Wrist-Right Description: Tingling, Aching Duration Amount of Time: 3 Duration Units: Months Frequency: Continuous Intervention/Comfort measure: Relaxation ASSESSMENT: G56.01 Carpal tunnel syndrome of right wrist (primary encounter diagnosis) R22.31 Wrist lump, right PLAN: The area that is thought to be a cyst of some sort, I feel is likely simply synovitis, which secondarily is causing some carpal tunnel symptoms. We will try cortisone injection and continue his bracing. We will get a nerve conduction exam in the meantime and we may consider surgical intervention during a slower time at work. FOLLOW UP INSTRUCTIONS: Follow-up after nerve testing Mr. Neville Fox was advised as to contrast therapies and/or to take analgesics/anti-inflammatories as needed and all contraindications were reviewed. OBJECTIVE: Mr. Neville Fox is a pleasant 46 year old in no apparent distress. Gen:There were no vitals taken for this visit. nl development, non obese, no deformities ENT: Normocephalic, normal hearing, moist mucosa CV: Pulses:Radial= 2+ and symmetric, capillary refill < 2 secs, no peripheral edema/varicosities Skin: no rash, bruising or lesions. Good turgor. Psych: cooperative and appropriate, alert and oriented x 3, good mood and affect. Musculoskeletal: Mild, focal area of swelling on the volar surface, centrally but more slightly ulnarly consistent with some synovitis versus possible ganglion. He has positive Tinel's positive median nerve compression test at the wrist, right worse than left. He has diminished light touch sensation in the median nerve distribution again right worse than left. Additional Injections: R carpal tunnel for carpal tunnel syndrome Informed Consent Consent Obtained: Verbal Joes Protocol A moment to CARE was completed. SIGN IN Personnel directly involved with the procedure wore the appropriate PPE. Special Equipment: N/A Patient/Surrogate Stated/Verified: Patient name, Date of , Relevant allergies and Intended procedure TIME OUT Intended patient and procedure match the source document(s). Consent documented and matches the intended procedure. Relevant labs, photos, and/or imaging studies have been reviewed. Correct side/site marked and visible. Medications required for procedure verified. No fire risk assessment and interventions applicable. No implant(s) inserted. 04/04/2022 3:50 PM The procedure site was prepped in the usual sterile fashion. Medications: 3 mg betamethasone acetate-betamethasone sodium phosphate 6 mg/mL Anesthetics: 0.5 mL lidocaine (PF) 10 mg/mL (1 %) Outcome: tolerated well, no immediate complications Post-injection instructions were reviewed with the patient and the patient voiced understanding of these instructions. SIGN OUT No specimen collected. All instruments, equipment, possible retained foreign bodies accounted for. Post-procedure follow-up management communicated and Plan of Care Visit completed when applicable IMAGING: IMPRESSION: No acute fracture/ Political Scientist: GABI Transcribe Date/Time: Oct 24 2015 4:48P Dictated by : MERRICK HINES MD This examination was interpreted and the report reviewed and electronically signed by: MERRICK HINES MD on Oct 24 2015 4:50PM EST Results-Findings * * *Final Report* * * DATE OF EXAM: Oct 24 2015 10:52AM WOX [id number] - XR HAND PA/LAT/OBL - RIGHT / PROCEDURE REASON: Pain in right hand * * * * Physician Interpretation * * * * RESULT: XR HAND PA/LAT/OBL right INDICATION: Pain in right hand/ Pt had a rope around his hand which was pulled on by a horse. Pain 3-4th mcp 40 years Male RESULT: No acute fracture identified. No lytic or blastic lesions. Supporting Subjective Information Below: Past Medical History: PAST MEDICAL HISTORY Diagnosis Date Arthritis Internal derangement of knee Unspecified otitis media Recurrent otitis Past Surgical History: PAST SURGICAL HISTORY Procedure Laterality Date ARTHROSCOPY KNEE DIAGNOSTIC W/WO SYNOVIAL BX SPX between high school and summer 2008 most recent Arthroscopy, knee, x5 right knee, COLONOSCOPY 07/14/2021 repeat in 10 years Family History: FAMILY HISTORY Problem Relation Age of Onset Colon Cancer Mother age 61 Hyperlipidemia Mother Hypertension Paternal Grandmother Diabetes Paternal Grandmother Heart Sister Social History: Social History Tobacco Use Smoking status: Every Day Packs/day: 0.50 Years: 15.00 Pack years: 7.50 Types: Cigarettes Last attempt to quit: 01/16/2017 Years since quittin.2 Smokeless tobacco: Never Tobacco comments: 10 cigs per day Vaping Use Vaping Use: Never used Substance Use Topics Alcohol use: Yes Comment: very seldom Drug use: Yes Frequency: 7.0 times per week Types: Marijuana Comment: + marijuana tox. Daily Medications: Current Outpatient Medications Medication Sig buPROPion XL (WELLBUTRIN XL) 150 mg 24 hr tablet Take 1 tablet by mouth once daily. rosuvastatin (CRESTOR) 10 mg tablet Take 1 tablet by mouth daily at bedtime. sertraline (ZOLOFT) 100 mg tablet Take 2 tablets by mouth once daily. celecoxib (CELEBREX) 200 mg capsule Take 1 capsule by mouth once daily. No current facility-administered medications for this visit. Allergies: Patient has no known allergies. ROS: General (negative for fatigue, malaise, weight loss/gain) HEENT (negative for headache, earache, recent vision changes, sinus pain, sore throat) Respiratory (no recent shortness of breath, hemoptysis) CV (negative for chest tightness, palpitations) Musculoskeletal (see HPI) Psych (no depression, anxiety) REFERRING PHYSICIAN: Consultation requested by SHARATH Davis for an opinion regarding right wrist pain. My final recommendations will be communicated back to the requesting physician by way of shared Medical record or letter to requesting physician via US mail. Glory Torres [address] [facility] [id number] Citlalli Chaney MD [address] [facility] [id number] Denys Davison MD documented in this encounter [facility] 03-11-2022 Instructions Glory Torres APRN.SHARATH - 03/11/2022 11:43 AM EDT Start Augmentin for ear infection. May use Ibuprofen 600-800 mg every 6-8 hours as needed for pain. May add on Flonase 1-2 times per day as needed. Recommend making appointment with orthopedics (Dr. Davison) for further evaluation of wrist pain. May continue with wrist brace/compression. Follow up as needed. documented in this encounter [facility] 03-11-2022 History of Presen t illness Narrative This is a 46 year old male who presents today with: Patient presents with: Acute Visit: Right ear infection HISTORY OF PRESENT ILLNESS: Neville Fox is a 46 year old male. Patient presents with: Acute Visit: Right ear infection Here in the office for right ear pain. Ear fullness. Pain started last night. Has been having on going post nasal drips. Sore throat. Productive cough, cream color mucus. Smoking 15 cigarettes per day at work. Tried tylenol cold and sinus which is mildly helpful. No fever. Right Wrist Lump: Noticed a lump on the wrist about 2 months ago. Refers her was doing yard work and the lump showed up rapidly. Refers that the lump has not gotten larger but is tender. Has noticed difficulty with party host and palm strength. Pain gets worse as the day goes on. Has been using a wrist brace and motrin which has been helpful. PAST MEDICAL HISTORY: PAST MEDICAL HISTORY Diagnosis Date Arthritis Internal derangement of knee Unspecified otitis media Recurrent otitis PAST SURGICAL HISTORY Procedure Laterality Date ARTHROSCOPY KNEE DIAGNOSTIC W/WO SYNOVIAL BX SPX between high school and summer 2008 most recent Arthroscopy, knee, x5 right knee, COLONOSCOPY 07/14/2021 repeat in 10 years ALLERGIES Patient has no known allergies. MEDICATIONS Current Outpatient Medications Medication Sig buPROPion XL (WELLBUTRIN XL) 150 mg 24 hr tablet Take 1 tablet by mouth once daily. rosuvastatin (CRESTOR) 10 mg tablet Take 1 tablet by mouth daily at bedtime. sertraline (ZOLOFT) 100 mg tablet Take 2 tablets by mouth once daily. celecoxib (CELEBREX) 200 mg capsule Take 1 capsule by mouth once daily. cyclobenzaprine (FLEXERIL) 10 mg tablet Take 1 tablet by mouth three times daily as needed for muscle spasm. (Patient not taking: Reported on 07/01/2021 ) No current facility-administered medications for this visit. FAMILY HISTORY Problem Relation Age of Onset Colon Cancer Mother age 61 Hyperlipidemia Mother Hypertension Paternal Grandmother Diabetes Paternal Grandmother Heart Sister Social History Tobacco Use Smoking status: Every Day Packs/day: 0.50 Years: 15.00 Pack years: 7.50 Types: Cigarettes Last attempt to quit: 01/16/2017 Years since quittin.1 Smokeless tobacco: Never Tobacco comments: 10 cigs per day Vaping Use Vaping Use: Never used Substance Use Topics Alcohol use: Yes Comment: very seldom Drug use: Yes Frequency: 7.0 times per week Types: Marijuana Comment: + marijuana tox. Daily REVIEW OF SYSTEMS GENERAL: No weight loss, malaise or fevers/chills HEENT: + Ear Pain/fullness, Sore throat, post nasal drip NECK: Negative for lumps, goiter, pain and significant neck swelling RESPIRATORY: Negative for cough, hemoptysis, wheezing, dyspnea or shortness of breath CARDIOVASCULAR: Negative for chest pain, leg swelling, orthopnea, or palpitations GI: No nausea, vomiting, or diarrhea/constipation. No hematochezia/melena. No heartburn or reflux symptoms. : No history of dysuria, frequency or incontinence MUSCULOSKELETAL: Negative for joint pain or swelling. SKIN: Negative for lesions, rash, and itching ENDOCRINE: Negative for cold or heat intolerance, polyuria, polydipsia and goiter NEURO: No history of headaches, syncope, paralysis, seizures or tremors MOOD: Negative for depression, anxiety, or suicidal ideation. EXAM: BP 122/68 Pulse 75 Temp 36.9 C (98.4 F) (Left Tympanic) Resp 16 Wt 83.5 kg (184 lb) SpO2 96% BMI 27.17 kg/m PHYSICAL EXAM: General Appearance: Well appearing, alert, in no acute distress, well-hydrated, well nourished. Skin: Skin color, texture, turgor normal, no suspicious rashes or lesions. Head: Normocephalic, no masses, lesions, tenderness or abnormalities. Eyes: Anicteric sclera. Pupils are equally round and reactive to light. Extraocular movements are intact. Ears: External ears normal, canals clear, Positive findings: R TM: erythematous and bulging. Nose/Sinuses: Nares normal, septum midline, mucosa normal, no drainage or sinus tenderness. Oropharynx: Lips, mucosa, and tongue normal, teeth and gums normal, oropharynx normal. Neck: Supple, no adenopathy; thyroid symmetric, normal size, no bruits. Lungs: Lungs clear to auscultation. No wheezing, rhonchi, rales. Heart: RRR without murmur, gallop, or rubs. No ectopy. Extremities: No deformities, edema, skin discoloration, clubbing or cyanosis. Good capillary refill. Musculoskeletal: + 0.5 x 0.5 cm, soft elevated mobile nodule noted to the right palmar side of the wrist. Tender to touch. No erythema noted. Peripheral Pulses: Normal, Capillary refill <2secs, strong peripheral pulses, Pulses palpable. Neurologic: Gait normal. Sensation grossly intact. ASSESSMENT/PLAN: 1. Acute otitis media, unspecified otitis media type - ICD9: 382.9, ICD10: H66.90 (primary diagnosis) - Will begin treatment with Augmentin 875 mg PO BID for 10 days - Supportive care with plenty of fluids, rest, and analgesia prn. - AMOXICILLIN 875 MG-POTASSIUM CLAVULANATE 125 MG TABLET 2. Wrist lump, right - ICD9: 782.2, ICD10: R22.31 - Recommend consult with orthopedics. - May continue supportive care at home NSAIDS and wrist brace/compression. - CONSULT TO ORTHOPAEDICS Follow-up as needed or sooner if symptoms get worse or do not improve. Discussed treatment plan and patient voices understanding. Patient's questions answered appropriately. Medications and potential side effects were discussed and patient voices understanding. Glory Torres APRN.SHARATH This note was partially generated using [employer] voice recognition system. Note was reviewed for accuracy. There may be minor misspellings or grammar miscues with [employer] voice recognition. Medical Decision Making: Problems: Low: Acute, uncomplicated illness or injury Moderate: Acute illness with systemic symptoms Risk: Minimal: Minimal risk from testing/treatment Low: Low risk from testing/treatment Medical Decision Making Level: 3 - Low documented in this encounter [facility] 05-13-2021 Hospital Discharg e instructions Patient Education 05/13/2021 00:47:09 CONTUSION, Soft Tissue Contusion,Soft Tissue You have a CONTUSION, which is a bruise with swelling and some bleeding under the skin. There are no broken bones. This injury takes a few days to a few weeks to heal. Home Care: 1) Keep the injured part elevated to reduce pain and swelling. This is especially important during the first 48 hours. 2) Make an ice pack (ice cubes in a plastic bag, wrapped in a towel) and apply for 20 minutes every 1-2 hours the first day. Continue this 3-4 times a day until the pain and swelling goes away. 3) You may use acetaminophen (Tylenol) or ibuprofen (Motrin, Advil) to control pain, unless another pain medicine was prescribed. [ NOTE : If you have chronic liver or kidney disease or ever had a stomach ulcer or GI bleeding, talk with your doctor before using these medicines.] Follow Up with your doctor or this facility if you are not improving within the next THREE days. [NOTE: If X-rays were taken, they will be reviewed by a radiologist. You will be notified of any new findings that may affect your care.] Get Prompt Medical Attention if any of the following occur: -- Pain or swelling increases -- Injured arm or leg becomes cold, blue, numb or tingly -- Redness, warmth or drainage from the skin [id number] [employer]. [address] [place] [address]. All rights reserved. This information is not intended as a substitute for professional medical care. Always follow your healthcare professional's instructions. Follow Up Care 05/12/2021 18:41:16 With:Follow up with primary care provider Address:Unknown When:2-4 days [facility] Evaluation + Plan note No data available for this section [facility] Evaluation note Diagnosis Acute otitis media, unspecified otitis media type- Primary Wrist lump, right [facility] Diagnosis Carpal tunnel syndrome of right wrist- Primary Carpal tunnel syndrome Wrist lump, right documented in this encounter [facility] noteNo assessment information availableWCleveland [facility] Phone: Evaluation note* Diagnosis Adjustment disorder with anxious mood- Primary Adjustment disorder with anxiety Chronic pain of right knee Hyperlipidemia, unspecified hyperlipidemia type Mass of joint of right wrist Balance problem Other symptoms involving nervous and musculoskeletal systems [facility] Diagnosis Wrist lump, right- Primary Carpal tunnel syndrome of right wrist Carpal tunnel syndrome [facility] Diagnosis Carpal tunnel syndrome of right wrist- Primary Carpal tunnel syndrome Lipoma of right upper extremity Lipoma of other specified sites Effusion of right wrist Effusion of forearm joint [facility] Diagnosis Lipoma of right upper extremity- Primary Lipoma of other specified sites Carpal tunnel syndrome on right Carpal tunnel syndrome Effusion of joint of right wrist Effusion of forearm joint Lipoma of right upper extremity Lipoma of other specified sites Carpal tunnel syndrome on right Carpal tunnel syndrome Effusion of joint of right wrist Effusion of forearm joint [facility] Diagnosis Non-recurrent acute suppurative otitis media of right ear without spontaneous rupture of tympanic membrane- Primary Lipoma of right upper extremity Lipoma of other specified sites Carpal tunnel syndrome on right Carpal tunnel syndrome Effusion of joint of right wrist Effusion of forearm joint [facility] Diagnosis Pre-operative examination- Primary Preoperative examination, unspecified Adjustment disorder with anxious mood Adjustment disorder with anxiety Marijuana abuse Cannabis abuse, unspecified Hyperlipidemia, unspecified hyperlipidemia type Smoker Tobacco use disorder Lipoma of right upper extremity Lipoma of other specified sites Carpal tunnel syndrome on right Carpal tunnel syndrome Effusion of joint of right wrist Effusion of forearm joint [facility] Diagnosis Lipoma of right upper extremity- Primary Lipoma of other specified sites Carpal tunnel syndrome on right Carpal tunnel syndrome [facility] Diagnosis Adjustment disorder with anxious mood Adjustment disorder with anxiety Chronic pain of right knee Hyperlipidemia, unspecified hyperlipidemia type [facility] Diagnosis Pre-operative examination- Primary Preoperative examination, unspecified Adjustment disorder with anxious mood Adjustment disorder with anxiety Marijuana abuse Cannabis abuse, unspecified Hyperlipidemia, unspecified hyperlipidemia type Smoker Tobacco use disorder Pain of left eye- Primary Pain in or around eye [facility] Diagnosis Pre-operative examination- Primary Preoperative examination, unspecified Adjustment disorder with anxious mood Adjustment disorder with anxiety Marijuana abuse Cannabis abuse, unspecified Hyperlipidemia, unspecified hyperlipidemia type Smoker Tobacco use disorder Herpes zoster with complication- Primary Herpes zoster with unspecified complication [facility] Diagnosis Pre-operative examination- Primary Preoperative examination, unspecified Adjustment disorder with anxious mood Adjustment disorder with anxiety Marijuana abuse Cannabis abuse, unspecified Hyperlipidemia, unspecified hyperlipidemia type Smoker Tobacco use disorder Herpes zoster with complication- Primary Herpes zoster with unspecified complication documented in this encounter [facility] note* Diagnosis Pre-operative examination- Primary Preoperative examination, unspecified Adjustment disorder with anxious mood Adjustment disorder with anxiety Marijuana abuse Cannabis abuse, unspecified Hyperlipidemia, unspecified hyperlipidemia type Smoker Tobacco use disorder Herpes zoster with complication- Primary Herpes zoster with unspecified complication documented in this encounter [facility] note* Diagnosis Pre-operative examination- Primary Preoperative examination, unspecified Adjustment disorder with anxious mood Adjustment disorder with anxiety Marijuana abuse Cannabis abuse, unspecified Hyperlipidemia, unspecified hyperlipidemia type Smoker Tobacco use disorder Herpes zoster with complication- Primary Herpes zoster with unspecified complication documented in this encounter [facility] note* Diagnosis Pre-operative examination- Primary Preoperative examination, unspecified Adjustment disorder with anxious mood Adjustment disorder with anxiety Marijuana abuse Cannabis abuse, unspecified Hyperlipidemia, unspecified hyperlipidemia type Smoker Tobacco use disorder Herpes zoster with complication- Primary Herpes zoster with unspecified complication documented in this encounter [facility] note* Diagnosis Pre-operative examination- Primary Preoperative examination, unspecified Adjustment disorder with anxious mood Adjustment disorder with anxiety Marijuana abuse Cannabis abuse, unspecified Hyperlipidemia, unspecified hyperlipidemia type Smoker Tobacco use disorder Herpes zoster with complication Herpes zoster with unspecified complication documented in this encounter [facility] note* Diagnosis Pre-operative examination- Primary Preoperative examination, unspecified Adjustment disorder with anxious mood Adjustment disorder with anxiety Marijuana abuse Cannabis abuse, unspecified Hyperlipidemia, unspecified hyperlipidemia type Smoker Tobacco use disorder Herpes zoster with complication Herpes zoster with unspecified complication Herpes zoster with complication- Primary Herpes zoster with unspecified complication documented in this encounter [facility] note* Diagnosis Pre-operative examination- Primary Preoperative examination, unspecified Adjustment disorder with anxious mood Adjustment disorder with anxiety Marijuana abuse Cannabis abuse, unspecified Hyperlipidemia, unspecified hyperlipidemia type Smoker Tobacco use disorder Wellness examination- Primary Herpes zoster with complication Herpes zoster with unspecified complication Chronic pain of right knee Adjustment disorder with anxious mood Adjustment disorder with anxiety Hyperlipidemia, unspecified hyperlipidemia type Screening for depression Encounter for screening examination for other mental health and behavioral disorders documented in this encounter [facility] for referral (narrative)* Outpatient Procedure (Routine) - Pending Review Specialty Diagnoses / Procedures Referred By Contac t Referred To Contact [facility] Diagnoses Wrist lump, right Carpal tunnel syndrome of right wrist Procedures EMG(NEURO/NI) NERVE CONDUCTION STUDIES 9-10 STUDIES Denys Davison MD [address] [place] [address] Neurological [place] [address] [place] [address] Referral ID Status Reason Start Date Expiration Date Visits Requested Visits Authorized [id number] Pending Review Auto-Generat ed Referral 2 04/04/2023 1 1 [facility] note* DAVID Talbert: PERFORM Event Display: Patient Summary Documents Authored Date: [id number] [facility] Reason for Referral Specialty Diagnoses / Procedures Referred By Contac t Referred To Contact Ophthalmology Diagnoses Herpes zoster with complication Procedures CONSULT TO OPHTHALMOLOGY OFFICE/OUTPATIENT [facility] MDM 60 MINUTES Citlalli Chaney MD [address] [place] [address] Referral ID Status Reason Start Date Expiration Date Visits Requested Visits Authorized [id number] Authorized PCP Requested Referral 01/09/2024 01/08/2025 1 1 Specialty Diagnoses / Procedures Referred By Contac t Referred To Contact MR IMAGING Diagnoses Wrist lump, right Carpal tunnel syndrome of right wrist Procedures MRI WRIST WO IVCON RT MRI ANY JT UPPER EXTREMITY W/O CONTRAST MATRL Denys Davison MD [address] [place] [address] Mr Imaging Referral ID Status Reason Start Date Expiration Date V isits Requested Visits Authorized [id number] Closed Auto-Generate d Referral 06/24/2022 07/23/2022 1 1 Specialty Diagnoses / Procedures Referred By Contac t Referred To Contact Orthopedics Diagnoses Wrist lump, right Procedures CONSULT TO ORTHOPAEDICS OFFICE/OUTPATIENT [facility] MDM 60-74 MINUTES Glory Torres APRN.MEDICAID ANALYST [address] [place] [address] Referral ID Status Reason Start Date Expiration Date Visits Requested Visits Authorized [id number] Pending Review PCP Requested Referral 03/11/2022 03/11/2023 1 1 Medications Administered Section Inactive Administered Medications - up to 3 most recent administrations Medication Order MAR Action Action Date Dose Rate Site betamethasone acetate-betamethasone sodium phosphate 3 mg injection (CELESTONE) 3 mg, Injection - FOR ORTHO USE ONLY, ONE TIME INJECTION, 1 dose, Starting on Mon04/04/22 at 1550, Until Mon04/04/22 at 1550 Given 04/04/2022 3:50 PM EST 3 mg Hand, Right lidocaine (PF) 10 mg/mL (1 %) 0.5 mL injection (XYLOCAINE) 0.5 mL, Injection - FOR ORTHO USE ONLY, ONE TIME INJECTION, 1 dose, Starting on Mon04/04/22 at 1550, Until Mon04/04/22 at 1550 Given 04/04/2022 3:50 PM EST 0.5 mL Hand, Right Chief Complaint and Reason for Visit Chief Complaint WRIST LUMP RIGHT Advance Directives No Advanced Directives Records Found Advance Directive Response Recorded Date/ Time Advance Directives No July 18 015 2:24pm Living Will No July 18, 2014 2:24pm Power of Engineering Specialist No July 18 15 2:24pm Summary Purpose Family History No Family History Records Found No data available for this section No data available for this section No Family History Records FoundNo Family History Records FoundNo Family History Records Found Additional Source Comments Source Comments (unrecognize d section and content) In the event this informatio n is protected by the Federal Confidentiality of Alcohol and Drug Abuse Patient Records regulations: The Federal rules restrict any use of the information to criminally investigate or prosecute any alcohol or drug abuse patient.[facility] this information is protected by the Federal Confidentiality of Alcohol and Drug Abuse Patient Records regulations: The Federal rules restrict any use of the information to criminally investigate or prosecute any alcohol or drug abuse patient.[facility] event this information is protected by the Federal Confidentiality of Alcohol and Drug Abuse Patient Records regulations: The Federal rules restrict any use of the information to criminally investigate or prosecute any alcohol or drug abuse patient.[facility] the event this information is protected by the Federal Confidentiality of Alcohol and Drug Abuse Patient Records regulations: The Federal rules restrict any use of the information to criminally investigate or prosecute any alcohol or drug abuse patient.[facility] the event this information is protected by the Federal Confidentiality of Alcohol and Drug Abuse Patient Records regulations: The Federal rules restrict any use of the information to criminally investigate or prosecute any alcohol or drug abuse patient.[facility] the event this information is protected by the Federal Confidentiality of Alcohol and Drug Abuse Patient Records regulations: The Federal rules restrict any use of the information to criminally investigate or prosecute any alcohol or drug abuse patient.[facility] the event this information is protected by the Federal Confidentiality of Alcohol and Drug Abuse Patient Records regulations: The Federal rules restrict any use of the information to criminally investigate or prosecute any alcohol or drug abuse patient.[facility] the event this information is protected by the Federal Confidentiality of Alcohol and Drug Abuse Patient Records regulations: The Federal rules restrict any use of the information to criminally investigate or prosecute any alcohol or drug abuse patient.[facility] the event this information is protected by the Federal Confidentiality of Alcohol and Drug Abuse Patient Records regulations: The Federal rules restrict any use of the information to criminally investigate or prosecute any alcohol or drug abuse patient.[facility] the event this information is protected by the Federal Confidentiality of Alcohol and Drug Abuse Patient Records regulations: The Federal rules restrict any use of the information to criminally investigate or prosecute any alcohol or drug abuse patient.[facility] the event this information is protected by the Federal Confidentiality of Alcohol and Drug Abuse Patient Records regulations: The Federal rules restrict any use of the information to criminally investigate or prosecute any alcohol or drug abuse patient.[facility] the event this information is protected by the Federal Confidentiality of Alcohol and Drug Abuse Patient Records regulations: The Federal rules restrict any use of the information to criminally investigate or prosecute any alcohol or drug abuse patient.[facility] the event this information is protected by the Federal Confidentiality of Alcohol and Drug Abuse Patient Records regulations: The Federal rules restrict any use of the information to criminally investigate or prosecute any alcohol or drug abuse patient.[facility] the event this information is protected by the Federal Confidentiality of Alcohol and Drug Abuse Patient Records regulations: The Federal rules restrict any use of the information to criminally investigate or prosecute any alcohol or drug abuse patient.[facility] the event this information is protected by the Federal Confidentiality of Alcohol and Drug Abuse Patient Records regulations: The Federal rules restrict any use of the information to criminally investigate or prosecute any alcohol or drug abuse patient.[facility] the event this information is protected by the Federal Confidentiality of Alcohol and Drug Abuse Patient Records regulations: The Federal rules restrict any use of the information to criminally investigate or prosecute any alcohol or drug abuse patient.[facility] the event this information is protected by the Federal Confidentiality of Alcohol and Drug Abuse Patient Records regulations: The Federal rules restrict any use of the information to criminally investigate or prosecute any alcohol or drug abuse patient.[facility] the event this information is protected by the Federal Confidentiality of Alcohol and Drug Abuse Patient Records regulations: The Federal rules restrict any use of the information to criminally investigate or prosecute any alcohol or drug abuse patient.[facility] the event this information is protected by the Federal Confidentiality of Alcohol and Drug Abuse Patient Records regulations: The Federal rules restrict any use of the information to criminally investigate or prosecute any alcohol or drug abuse patient.[facility] the event this information is protected by the Federal Confidentiality of Alcohol and Drug Abuse Patient Records regulations: The Federal rules restrict any use of the information to criminally investigate or prosecute any alcohol or drug abuse patient.[facility] the event this information is protected by the Federal Confidentiality of Alcohol and Drug Abuse Patient Records regulations: The Federal rules restrict any use of the information to criminally investigate or prosecute any alcohol or drug abuse patient.[facility] the event this information is protected by the Federal Confidentiality of Alcohol and Drug Abuse Patient Records regulations: The Federal rules restrict any use of the information to criminally investigate or prosecute any alcohol or drug abuse patient.[facility] the event this information is protected by the Federal Confidentiality of Alcohol and Drug Abuse Patient Records regulations: The Federal rules restrict any use of the information to criminally investigate or prosecute any alcohol or drug abuse patient.[facility] the event this information is protected by the Federal Confidentiality of Alcohol and Drug Abuse Patient Records regulations: The Federal rules restrict any use of the information to criminally investigate or prosecute any alcohol or drug abuse patient.[facility] the event this information is protected by the Federal Confidentiality of Alcohol and Drug Abuse Patient Records regulations: The Federal rules restrict any use of the information to criminally investigate or prosecute any alcohol or drug abuse patient.[facility] Reason for Visit (unrecogniz ed section and content) Reason Comments Acute Visit Right ear infection Reason Comments New Tumor/Mass Specialty Diagnoses / Procedures Referred By Cynthia t Referred To Contact Orthopedics Diagnoses Wrist lump, right Procedures CONSULT TO ORTHOPAEDICS OFFICE/OUTPATIENT NEW HIGH MDM 60-74 MINUTES Glory Torres, BARBY.MEDICAID ANALYST [address] [place] [address] Referral ID Status Reason Start Date Expiration Date Visits Requested Visits Authorized [id number] Pending Review PCP Requested Referral 03/11/2022 03/11/2023 1 1 Reason Comments Medication Follow-up Reason Comments Follow Up EMG/NCV results Reason Comments Established Patient Results - Mri Reason Comments Schedule Surgery Reason Comments Acute Visit right ear infection Reason Comments Consult Reason Comments Post Op 6 weeks 6 days post op excision volar lipoma R wrist R CTR and Injection Specialty Diagnoses / Procedures Referred By Cynthia zuluaga Referred To Contact MR IMAGING Diagnoses Wrist lump, right Carpal tunnel syndrome of right wrist Procedures MRI WRIST WO IVCON RT MRI ANY JT UPPER EXTREMITY W/O CONTRAST HARLEYL Denys Davison MD [address] [place] [address] [place] [address] Referral ID Status Reason Start Date Expiration Date V isits Requested Visits Authorized [id number] Closed Auto-Generate d Referral 06/24/2022 07/23/2022 1 1 Reason Onset Date Comments Refill Request 06/11/2023 Reason Comments Eye Problem left eye swollen, dr castañeda, light sensitive x 6 days, something went in eye while driving Reason Comments Patient Update Reason Comments Hospital Follow Up Reason Comments Herpes Zoster Follow Up Specialty Diagnoses / Procedures Referred By Contact Referred To Contact Ophthalmology / OPHTHALMOLOGY Diagnoses Add on next Monday with SP OR Dr. Johnston if he has an opening next week Procedures EST ADULT Citlalli Chaney MD [address] [place] [address] Cheyanne Klein MD [address] [place] [address] Referral ID Status Reason Start Date Expiration Date V isits Requested Visits Authorized [id number] New Request 01/19/2024 04/18/2024 1 1 Reason Comments Herpes Zoster Evaluation Specialty Diagnoses / Procedures Referred By Contac t Referred To Contact Ophthalmology Diagnoses Herpes zoster with complication Procedures CONSULT TO OPHTHALMOLOGY OFFICE/OUTPATIENT [facility] 60 MINUTES Citlalli Chaney MD [address] [place] [address] Referral ID Status Reason Start Date Expiration Date V isits Requested Visits Authorized [id number] Closed PCP Requested Referral 01/09/2024 01/08/2025 1 1 Reason Comments Refill Request Nurse To Address Patient Question Reason Comments Herpes Zoster Follow Up Left Eye Reason Onset Date Comments Refill Request 03/07/2024 Reason Onset Date Comments Refill Request 04/24/2024 Reason Comments Physical Care Teams (unrecognized sec tion and content) Core Winder Relationship Specialty Start Date End Date Citlalli Chaney MD [address] [place], [place] [id number] PCP - General Family Medicine 10/14/11 Core Winder Relationship Specialty Start Date End Date Citlalli Chaney MD [address] [place], [place] [id number] PCP - General Family Medicine 10/14/11 Team Status: Active Member Role Status Dates Dr. Citlalli Chaney MD Family Provider Active Dr. Citlalli Chaney MD Primary Care Provider Active Team Status: Inactive Member Role Status Dates Dr. Citlalli Chaney MD Primary Care Provider Active Dr. Denys Davison MD Attending Provider Active Core Winder Relationship Specialty Start Date End Date Citlalli Chaney MD [address] [place] [address] PCP - General Family Medicine 10/14/11 Core Winder Relationship Specialty Start Date End Date Citlalli Chaney MD [address] [place] [address] PCP - General Family Medicine 10/14/11 Core Winder Relationship Specialty Start Date End Date Citlalli Chaney MD [address] [place] [address] PCP - General Family Medicine 10/14/11 Core Winder Relationship Specialty Start Date End Date Citlalli Chaney MD [address] [place] [address] PCP - General Family Medicine 10/14/11 Core Winder Relationship Specialty Start Date End Date Citlalli hCaney MD [address] [place] [address] PCP - General Family Medicine 10/14/11 Core Winder Relationship Specialty Start Date End Date Citlalli Chaney MD [address] [place] [address] PCP - General Family Medicine 10/14/11 Core Winder Relationship Specialty Start Date End Date Citlalli Chaney MD [address] [place] [address] PCP - General Family Medicine 10/14/11 Core Winder Relationship Specialty Start Date End Date Citlalli Chaney MD [address] [place] [address] PCP - General Family Medicine 10/14/11 Core Winder Relationship Specialty Start Date End Date Citlalli Chaney MD [address] [place] [address] PCP - General Family Medicine 10/14/11 Core Winder Relationship Specialty Start Date End Date Citlalli Chaney MD [address] [place] [address] PCP - General Family Medicine 10/14/11 Core Winder Relationship Specialty Start Date End Date Citlalli Chaney MD [address] [place] [address] PCP - General Family Medicine 10/14/11 Core Winder Relationship Specialty Start Date End Date Citlalli Chaney MD [address] [place] [address] PCP - General Family Medicine 10/14/11 Core Winder Relationship Specialty Start Date End Date Citlalli Chaney MD [address] [place] [address] PCP - General Family Medicine 10/14/11 Core Winder Relationship Specialty Start Date End Date Citlalli Chaney MD [address] [place] [address] PCP - General Family Medicine 10/14/11 Core Winder Relationship Specialty Start Date End Date Citlalli Chaney MD [address] [place] [address] PCP - General Family Medicine 10/14/11 Core Winder Relationship Specialty Start Date End Date Citlalli Chaney MD [address] [place] [address] PCP - General Family Medicine 10/14/11 Core Winder Relationship Specialty Start Date End Date Citlalli Chaney MD [address] [place] [address] PCP - General Family Medicine 10/14/11 Core Winder Relationship Specialty Start Date End Date Citlalli Chaney MD [address] [place] [address] PCP - General Family Medicine 10/14/11 Glory Torres, SUPPLY AIDE.MEDICAID ANALYST [address] [place] [address] Brand Development Manager Family Medicine 04/14/24 Diaz aMr SUPPLY AIDE.MEDICAID ANALYST [address] [place] [address] [facility] 04/23/24 Core Winder Relationship Specialty Start Date End Date Citlalli Chaney MD [address] [place] [address] PCP - General Family Medicine 10/14/11 Glory Torres, SUPPLY AIDE.MEDICAID ANALYST [address] [place] [address] Brand Development Manager Family Medicine 04/14/24 Diaz Mar SUPPLY AIDE.MEDICAID ANALYST [address] [place] [address] [facility] Development [facility] 04/23/24 Core Winder Relationship Specialty Start Date End Date Citlalli Chaney MD [address] [place] [address] PCP - General Family Medicine 10/14/11 Glory Torres SUPPLY AIDE.MEDICAID ANALYST [address] [place] [address] Brand Development Manager Family Medicine 04/14/24 Diaz Mar, BARBY.MEDICAID ANALYST [address] [place], [place] [address] [facility] 04/23/24 Core Winder Relationship Specialty Start Date End Date Citlalli Chaney MD [address] [place], [place] [id number] PCP - General Family Medicine 10/14/11 Glory Torres SUPPLY AIDE.MEDICAID ANALYST [address] [place], [place] [id number] [facility] 04/14/24 Diaz Mar, SUPPLY AIDE.MEDICAID ANALYST [address] [place], [place] [id number] [facility] 04/23/24 Goals (unrecognized section and content) Goals may be documented in a n alternate section (unrecognized sect ion and content) No Status Records FoundNo Status Records FoundNo Status Records FoundNo Status Records Found INFORMATION SOURCE (unrecogn ized section and content) DATE CREATED AUTHOR 11/07/2022 [facility] [facility] DATE CREATED AUTHOR AUTHOR'S ORGANIZ ATION 01/06/2024 [facility] ([place]) DATE CREATED AUTHOR AUTHOR'S ORGANIZ ATION 01/28/2024 [facility] DATE CREATED AUTHOR AUTHOR'S ORGANIZ ATION 05/02/2024 [facility] FOR RECORDS PERTAINING TO PATIENTS WHO ARE OR HAVE BEEN ENROLLED IN A CHEMICAL DEPENDENCY/SUBSTANCEABUSE PROGRAM, SOME INFORMATION MAY BE OMITTED. This clinical summary was aggregated from multiple sources. Caution should be exercised in using it in the provision of clinical care. This summary normalizes information from multiple sources, and as a consequence, information in this document may materially change the coding, format and clinical context of patient data. In addition, data may be omitted in some cases. CLINICAL DECISIONS SHOULD BE BASED ON THE PRIMARY CLINICAL RECORDS. [facility]. provides no warranty or guarantee of the accuracy or completeness of information in this document.
[2024-11-29 09:05] LABS: AST(SGOT) 22 U/L (<=37); Alanine Aminotransfer ALT/SGPT 26 U/L (<=46); Albumin, Serum 3.9 g/dL (3.5-5.0); Alkaline Phosphatase 86 U/L (40-129); Anion Gap 12 (5-15); BUN 17 mg/dL (4-19); BUN/Creat Ratio 16.7 RATIO (10-20); Calcium,Total 8.9 mg/dL (7.6-11.0); Carbon Dioxide 22.4 mmol/L (21.0-32.0); Chloride 107 mmol/L (98-108); Cholesterol 206 mg/dL (<=200); Globulin 2.4 g/dL (2.2-4.2); Glucose 105 mg/dL (70-99); Low Density Lipoprotein Calc. 126 mg/dL; Potassium 4.2 mmol/L (3.3-5.1); Triglycerides 198 mg/dL; Very Low Density Lipoprotein 40 mg/dL (5-40); cholesterol:hdl ratio screen 5.11
== END | disposition home or self-care (01) ==
LOC: LAB 07:38
PROVIDERS: PCP Nurse Practitioner Family; Referring Provider Nurse Practitioner Family; Visit Provider Nurse Practitioner Family
DX: E78.5 Hyperlipidemia, unspecified (principal)
CPT/HCPCS: 36415; 80053; 80061